=== PATIENT | female | born 1995 | race American Indian/Alaskan Native ===

== ENCOUNTER 2017-09-16 08:53 | Inpatient (IN) | payer MEDICAID, OTHER ==
[2017-09-16] MEDS: Lactated Ringers 1,000 ML IV SCH ×2 (09:35→12:23)
[2017-09-16] MEDS ORDERED: Sodium Chloride 0.9% 10 ML Syringe FLUSH PRN ×2 (09:42→13:29)
[2017-09-16] MEDS ORDERED: Misoprostol 400 MCG (4 X 100 MCG TAB) RECTAL PRN ×2 (09:42→13:29)
[2017-09-16] MEDS ORDERED: Lactated Ringers 500 ML IV ONE (09:42)
[2017-09-16] MEDS ORDERED: Acetaminophen 325 MG Tab PO PRN (09:42)
[2017-09-16] MEDS ORDERED: Methylergonovine 0.2 MG/1 ML Amp IM PRN (09:42)
[2017-09-16] MEDS ORDERED: Lidocaine 1% 30 ML SDV INJECT PRN (09:42)
[2017-09-16] MEDS ORDERED: Ondansetron 4 MG/2 ML SDV IV PRN (09:42)
[2017-09-16] MEDS ORDERED: Carboprost Tromethamine 250 MCG/1 ML Amp IM PRN ×2 (09:42→13:29)
[2017-09-16] MEDS ORDERED: Tranexamic Acid 1,000 MG in Sodium Chloride 0.9% 100 ML IV PRN ×2 (09:42→13:29)
[2017-09-16] MEDS ORDERED: fentaNYL 100 MCG/2 ML SDV ONE (12:03)
[2017-09-16] MEDS ORDERED: Bupivacaine 0.75%/D5W 2 ML Amp ONE (12:03)
--- NOTE | 2017-09-16 12:27 | PCM.SN ---
- Free Text/Narrative Note: Intrathecal. Sitting position, sterile and prep, 1% lidocaine w bicarb for skinwheal to L2 L3 interspace. Introducer, 24 ga pencan x 1. Pos CSF, neg heme, neg parasthesia. 20 mcg pf sufenta, 30 mcg pf fentanyl, 0.4 ml pf ns and 6 mg of 0.75% pf bupivacaine injected after CSF aspiration. Pt to L lateral position. Procedure time 1200 to 1235
[2017-09-16] MEDS ORDERED: Oxytocin/Normal Saline 30 UNIT/500 ML BAG IV SCH (13:20)
--- NOTE | 2017-09-16 13:26 | HP ---
LOCATION: [facility]. HISTORY OF PRESENT ILLNESS: The patient is a 22-year-old, G6, P4-0-1-4, who comes in today at 39 weeks and 1 day with increase contractions, good movement, no loss of fluid, no vaginal bleeding. The patient has had some care in [place]. LMP was 12/22/2016, giving her an EDC of 09/22/2017, which was consistent with an ultrasound in 05/2017, at roughly 25 weeks' gestational age. OB HISTORY: The patient has had 4 vaginal deliveries, one spontaneous miscarriage. Largest baby born was 8 pounds 10 ounces. DEVELOPMENT CONSULTANT HISTORY: She did have an abnormal Pap previously, but the followup has been negative. No STDs. PAST MEDICAL HISTORY: Negative. PAST SURGICAL HISTORY: Negative. SOCIAL HISTORY: The patient does smoke socially. ALLERGIES: She has no known drug allergies. LABORATORY DATA: Blood type is A positive, antibody negative. Hep C negative. Rubella immune. RPR negative. Hep B negative. HIV negative. Gonorrhea and chlamydia negative. One-hour was 104. Ultrasound in May was consistent with dates, showed no abnormalities and a posterior placenta. PHYSICAL EXAMINATION: VITAL SIGNS: The patient is afebrile. Blood pressure 137/70. EFM is reactive and reassuring. She is rosa maria roughly every 2 to 3 minutes and does appear mildly uncomfortable. The RN did check her, she was 4 to 5 cm. ASSESSMENT AND PLAN: Intrauterine at term, in active labor. She does have group B streptococcus unknown status, but no risk factors; therefore, we will hold on any prophylaxis. I did inform the family doctor of this also. Otherwise, we will expect vaginal delivery. When the patient did get her intrathecal, I did go and perform AROM and that was clear and she was 7 cm by that point. [facility] /[id number] CLAIR
[2017-09-16] MEDS ORDERED: Oxytocin 10 Units/1 ML SDV IM PRN (13:29)
[2017-09-16] MEDS ORDERED: Simethicone 80 MG Tab.Chew PO PRN (13:29)
[2017-09-16] MEDS ORDERED: Benzocaine/Menthol 20%-0.5% Spray 56 GM Canister TOP PRN (13:29)
[2017-09-16] MEDS ORDERED: Zolpidem 5 MG Tab PO PRN (13:29)
[2017-09-16] MEDS: Ibuprofen 800 MG Tab PO PRN (16:30)
[2017-09-16] MEDS: Docusate Sodium 100 MG Cap PO PRN (19:42)
[2017-09-16] MEDS: Acetaminophen 325 MG Tab PO PRN (19:42)
[2017-09-16] MEDS ORDERED: hydrOXYzine HCl 25 MG Tab PO ONE (23:18)
--- NOTE | 2017-09-17 02:04 | DEL ---
DATE: 09/16/2017 LOCATION: [facility]. PREDELIVERY DIAGNOSIS: Intrauterine at term, in active labor. Delivery was a normal spontaneous vaginal delivery. FINDINGS: There was a viable with scores 7 and 8. Baby weighed 3690 g. ESTIMATED BLOOD LOSS: Normal. PROCEDURE IN DETAIL: The patient was admitted earlier in the day in active labor. She was given intrathecal anesthesia, and AROM was performed. Shortly after that, the patient did push the 's head out without difficulty. Anterior shoulder was delivered, and the body followed quickly behind. The infant was placed on the maternal abdomen. The cord clamping was delayed. Then, the cord was cut and clamped. The placenta was then delivered with some uterine massage and gentle traction. The placenta was delivered intact. The third-stage Pitocin was then given, and some uterine massage was also performed. There were no vaginal lacerations. Baby was doing well. scores were 7 and 8, and baby did weigh 3690 g. Estimated blood loss was normal. The mom and baby were doing well at the end of the delivery. [facility] /[id number]
[2017-09-17] MEDS: Acetaminophen 325 MG Tab PO PRN ×2 (03:02→08:06)
[2017-09-17] MEDS: Ibuprofen 800 MG Tab PO PRN (03:03)
[2017-09-17] MEDS: Docusate Sodium 100 MG Cap PO PRN (08:05)
[2017-09-17 08:46] VITALS: BP 124/73
[2017-09-17] MEDS ORDERED: Prenatal Multivitamin with Calcium/Folic Acid/Iron Tab PO SCH (09:00)
[2017-09-17] MEDS ORDERED: Bupivacaine 0.75%/D5W 2 ML Amp INJECT ONE (09:59)
[2017-09-17] MEDS ORDERED: fentaNYL 100 MCG/2 ML SDV ITHECAL ONE (09:59)
--- NOTE | 2017-09-17 14:33 | DISCH ---
ADMITTING DIAGNOSES: 1. Intrauterine at term, 38+ weeks. 2. Poor care. 3. History of positive drug screens earlier in the with positive amphetamines on 04/09/2017, and negative on 06/15/2017, and 07/13/2017. 4. Anemia of with hemoglobin 10.6 upon admission. 5. Active labor. 6. Group B streptococcus unknown. DISCHARGE DIAGNOSES: 1. Intrauterine at term, 38+ weeks. 2. Poor care. 3. History of positive drug screens earlier in the with positive amphetamines on 04/09/2017 and negative on 06/15/2017 and 07/13/2017. 4. Anemia of with hemoglobin 10.6 upon admission. 5. Active labor. 6. Concerns with requiring NICU transfer and mother requesting early discharge. 7. Group B streptococcus unknown. HISTORY OF PRESENT ILLNESS: Please see H and P. SUMMARY OF HOSPITAL COURSE: The patient was admitted on the above date with the above diagnoses. She was seen by Dr. Angulo. Please see his H and P and delivery note. It sounds like she delivered pretty quickly after presentation to the hospital. She did have a spontaneous vaginal delivery yielding a male with scores of 7 and 8, weighing 8 pounds 2 ounces (3690 g), that did require a NICU transfer after delivery. EBL was listed as normal. day #1, date of discharge, the patient was tolerating p.o.'s, ambulating, urinating, passing flatus, requesting early discharge due to being transferred from [facility] for further interventions and evaluations. LABORATORY DATA: Discharge labs reveal a white cell count 9.8, hemoglobin 10.6, which is the same from predelivery hemoglobin, and platelets of 250. CONDITION ON DISCHARGE COMPARED TO CONDITION ON ADMISSION: Improved. DISCHARGE INSTRUCTIONS: 1. Diet as tolerated. 2. Activity: No lifting more than 20 pounds. No sit-ups, straining, and pelvic rest for the next 6 weeks with immediate return to fertility discussed with the patient. 3. Reasons to return or go to the emergency room were discussed with the patient in detail including, but not limited to, temperature greater than 100.4, foul-smelling discharge, red hot tender breasts, or increased vaginal bleeding. DISCHARGE MEDICATIONS: 1. [id number] Tylenol or ibuprofen for pain. 2. vitamins x6 weeks. FOLLOWUP: Follow up in 6 weeks for visit. I did discuss the importance of followup and ramifications of not doing so with the patient. DISCHARGE EVALUATION: Vital Signs: Blood pressure 124/73, O2 saturations of 100%, and heart rate 74. Lungs: Clear to auscultation bilaterally. Heart: S1 and S2. Regular rate and rhythm. Pelvic: Firm uterus at around the umbilicus. Extremities: Trace pedal edema. No calf pain. Please see discharge plan for further details as well. The patient understands and agrees with the above treatment and plan. [facility] /[id number]
== END 2017-09-17 10:00 | disposition home or self-care (01) | DRG 775 ==
LOC: DL.OBCHECK 08:53 → DL.OB 09:15 → OBSVTOIN 13:17 → DL.OB 13:17
PROVIDERS: ADMIT Family Medicine; ATTEND Family Medicine
PROC: 10E0XZZ Delivery of Products of Conception, External Approach (ICD-10-PCS; principal; 2017-09-16)
PROC: 3E0S3GC Introduction of Other Therapeutic Substance into Epidural Space, Percutaneous Approach (ICD-10-PCS; 2017-09-16)
PROC: 10907ZC Drainage of Amniotic Fluid, Therapeutic from Products of Conception, Via Natural or Artificial Opening (ICD-10-PCS; 2017-09-16)
DX: O99.02 Anemia complicating childbirth (principal); O99.323 Drug use complicating pregnancy, third trimester; Z37.0 Single live birth; Z3A.39 39 weeks gestation of pregnancy; D64.9 Anemia, unspecified; F15.90 Other stimulant use, unspecified, uncomplicated
CPT/HCPCS: 36415; 59409; 85027; 86592; A9270-GY; J2405; J2590; J3010; J7120

== ENCOUNTER 2018-10-31 19:09 | Emergency (ER) | payer SELFPAY ==
[2018-10-31 19:23] VITALS: BP 130/60
[2018-10-31] MEDS ORDERED: LORazepam 2 MG/ML Syringe IVPUSH ONE (19:23)
[2018-10-31 19:49] LABS: ACETAMINOPHEN < 10 ug/mL; ANION GAP 17.1; CHLORIDE,CL 110 mmol/L (101-111); SODIUM,NA 143 mmol/L (135-145)
--- NOTE | 2018-10-31 19:51 | EDM.PDOC ---
ED HPI GENERAL MEDICAL PROBLEM - General Chief Complaint: Behavioral/Psych Stated Complaint: AMBULANCE Time Seen by Provider: 10/31/18 19:12 Source of Information: Reports: Patient, EMS, Family, RN History Limitations: Reports: Altered Mental Status - History of Present Illness INITIAL COMMENTS - FREE TEXT/NARRATIVE: ED via [facility], Tiered response to POV. Patient initial report OD on Zoloft, unknown time and amount, Mother arrives few minutes after EMS with bottle of Wellbutrin 150mg filled on 10/24, Zoloft per EMR 25mg, Mother did not locate zoloft bottle, Ibuprofen 200mg %0 tab bottle, patient state "lots in it" Seizure reported by boyfriend, not witnessed by mother. Patient underlying good health No prior attempts. No known problems with drug abuse. Mom notes sister recently from OD and buried last week. Estimated time of ingestion 1829. Mother notified by noa at 1848. Patient currently seeing Zenaida Lara counselor at [facility]. Treatments TAR ROOFER: Reports: IV/IO - Related Data Allergies Allergy/AdvReac Type Severity Reaction Status Date / Time paroxetine [From Paxil] Allergy Rash Verified 10/31/18 19:26 Home Meds: Home Meds Multivitamin [Multi-Vitamin Daily] 1 tab PO DAILY 09/16/17 [History] Sertraline [Zoloft] 25 mg PO DAILY 09/16/17 [History] Past Medical History - Past Health History Medical/Surgical History: Denies Medical/Surgical History HEENT History: Reports: None Cardiovascular History: Reports: None Respiratory History: Reports: None Gastrointestinal History: Reports: None Genitourinary History: Reports: None 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: Musculoskeletal History: Reports: Back Pain, Chronic Neurological History: Reports: None Psychiatric History: Reports: Anxiety Endocrine/Metabolic History: Reports: None Hematologic History: Reports: None Immunologic History: Reports: None Oncologic (Cancer) History: Reports: None Dermatologic History: Reports: None - Infectious Disease History Infectious Disease History: Reports: Chicken Pox - Past Surgical History Head Surgeries/Procedures: Reports: None Social & Family History - Family History Family Medical History: Noncontributory - Tobacco Use Smoking Status *Q: Current Status Unknown - Caffeine Use Caffeine Use: Reports: Soda - Recreational Drug Use Recreational Drug Use: Yes Drug Use in Last 12 Months: No ED ROS GENERAL - Review of Systems Review Of Systems: ROS reveals no pertinent complaints other than HPI. - Physical Exam Exam: See Below Exam Limited By: No Limitations General Appearance: Mild Distress, Other (Awake, glazed appearance to eyes, slowed mental processing and verbal response. ) Eye Exam: Bilateral Eye: EOMI, Nystagmus (horizontal), PERRL (4) Ears: Normal External Exam, Normal TMs Nose: Normal Inspection Throat/Mouth: Normal Inspection, Normal Voice Head Exam: Atraumatic, Normocephalic Neck: Normal Inspection, Full Range of Motion Respiratory/Chest: No Respiratory Distress, Lungs Clear, Normal Breath Sounds Cardiovascular: Normal Peripheral Pulses, Regular Rate, Rhythm, Tachycardia GI/Abdominal: Normal Bowel Sounds, Soft, Non-Tender Neuro Exam (Abbreviated): Oriented, Slow to Respond Psychiatric: Flat Affect Skin Exam: Warm, Dry, Intact Course - Vital Signs Last Recorded V/S: Last Vital Signs Temp 96.8 F 10/31/18 19:12 Pulse 119 H 10/31/18 19:12 Resp 20 10/31/18 19:12 BP 130/60 10/31/18 19:12 Pulse Ox 98 10/31/18 19:12 - Orders/Labs/Meds Orders: Active Orders 24 hr Category Date Time Status EKG 12 Lead [EKG Documentation Completion] [RC] URGENT Care 10/31/18 19:11 Active Head wo Cont [CT] Urgent Exams 10/31/18 19:34 Taken Labs: Laboratory Tests 10/31/18 10/31/18 10/31/18 Range/Units 19:20 19:20 19:20 WBC 13.7 H (5.0-10.0) 10^3/uL RBC 4.58 (4.2-5.4) 10^6/uL Hgb 12.9 D (12.0-16.0) g/dL Hct 39.8 (37.0-47.0) % MCV 86.9 (80-100) fL MCH 28.2 (27.0-34.0) pg MCHC 32.4 L (33.0-35.0) g/dL Plt Count 345 D (150-450) 10^3/uL Neut % (Auto) 80.4 H (42.2-75.2) % Lymph % (Auto) 12.2 L (20.5-50.1) % [place] % (Auto) 6.6 (2-8) % Eos % (Auto) 0.7 L (1.0-3.0) % Baso % (Auto) 0.1 (0.0-1.0) % Sodium 143 (135-145) mmol/L Potassium 3.1 L (3.6-5.0) mmol/L Chloride 110 (101-111) mmol/L Carbon Dioxide 19.0 L (21.0-31.0) mmol/L Anion Gap 17.1 BUN 14 (7-18) mg/dL Creatinine 1.0 (0.6-1.3) mg/dL Est Cr Clr Drug Dosing TNP Estimated GFR (MDRD) > 60 BUN/Creatinine Ratio 14.00 Glucose 124 H (74-105) mg/dL Lactic Acid 3.3 H (0.5-2.2) mmol/L Calcium 8.5 (8.4-10.2) mg/dl Total Bilirubin 0.3 (0.2-1.0) mg/dL AST 23 (10-42) IU/L ALT 16 (10-60) IU/L Alkaline Phosphatase 69 (42-121) IU/L Total Protein 7.2 (6.7-8.2) g/dl Albumin 4.2 (3.2-5.5) g/dl Globulin 3.0 Albumin/Globulin Ratio 1.40 HCG, Qual Negative Urine Color (YELLOW) Urine Appearance (CLEAR) Urine pH (5.0-9.0) Ur Specific [place] (1.005-1.030) Urine Protein (NEGATIVE) Urine Glucose (UA) (NEGATIVE) Urine Ketones (NEGATIVE) Urine Occult Blood (NEGATIVE) Urine Nitrite (NEGATIVE) Urine Bilirubin (NEGATIVE) Urine Urobilinogen (0.2-1.0) mg/dL Ur Leukocyte Esterase (NEGATIVE) Urine RBC /HPF Urine WBC (0-5/HPF) /HPF Ur Epithelial Cells (NOT SEEN) /HPF Urine Bacteria (0-FEW/HPF) /HPF Urine Trichomonas (NOT SEEN) /HPF Salicylates < 4 mg/dL Urine Opiates Screen (NEGATIVE) Ur Oxycodone Screen (NEGATIVE) Urine Methadone Screen (NEGATIVE) Acetaminophen < 10 ug/mL Ur Barbiturates Screen (NEGATIVE) U Tricyclic Antidepress (NEGATIVE) Ur Phencyclidine Scrn (NEGATIVE) Ur Amphetamine Screen (NEGATIVE) U Methamphetamines Scrn (NEGATIVE) Urine MDMA Screen (NEGATIVE) U Benzodiazepines Scrn (NEGATIVE) Urine Cocaine Screen (NEGATIVE) U Marijuana (THC) Screen (NEGATIVE) Ethyl Alcohol < 5 mg/dL 10/31/18 10/31/18 Range/Units 19:39 19:39 WBC (5.0-10.0) 10^3/uL RBC (4.2-5.4) 10^6/uL Hgb (12.0-16.0) g/dL Hct (37.0-47.0) % MCV (80-100) fL MCH (27.0-34.0) pg MCHC (33.0-35.0) g/dL Plt Count (150-450) 10^3/uL Neut % (Auto) (42.2-75.2) % Lymph % (Auto) (20.5-50.1) % [place] % (Auto) (2-8) % Eos % (Auto) (1.0-3.0) % Baso % (Auto) (0.0-1.0) % Sodium (135-145) mmol/L Potassium (3.6-5.0) mmol/L Chloride (101-111) mmol/L Carbon Dioxide (21.0-31.0) mmol/L Anion Gap BUN (7-18) mg/dL Creatinine (0.6-1.3) mg/dL Est Cr Clr Drug Dosing Estimated GFR (MDRD) BUN/Creatinine Ratio Glucose (74-105) mg/dL Lactic Acid (0.5-2.2) mmol/L Calcium (8.4-10.2) mg/dl Total Bilirubin (0.2-1.0) mg/dL AST (10-42) IU/L ALT (10-60) IU/L Alkaline Phosphatase (42-121) IU/L Total Protein (6.7-8.2) g/dl Albumin (3.2-5.5) g/dl Globulin Albumin/Globulin Ratio HCG, Qual Urine Color Yellow (YELLOW) Urine Appearance Clear (CLEAR) Urine pH 6.0 (5.0-9.0) Ur Specific [place] >= 1.030 (1.005-1.030) Urine Protein 30 H (NEGATIVE) Urine Glucose (UA) Negative (NEGATIVE) Urine Ketones Negative (NEGATIVE) Urine Occult Blood Trace-intact H (NEGATIVE) Urine Nitrite Negative (NEGATIVE) Urine Bilirubin Negative (NEGATIVE) Urine Urobilinogen 0.2 (0.2-1.0) mg/dL Ur Leukocyte Esterase Negative (NEGATIVE) Urine RBC Not seen /HPF Urine WBC 5-10 H (0-5/HPF) /HPF Ur Epithelial Cells Moderate H (NOT SEEN) /HPF Urine Bacteria Moderate H (0-FEW/HPF) /HPF Urine Trichomonas Present H (NOT SEEN) /HPF Salicylates mg/dL Urine Opiates Screen Negative (NEGATIVE) Ur Oxycodone Screen Negative (NEGATIVE) Urine Methadone Screen Negative (NEGATIVE) Acetaminophen ug/mL Ur Barbiturates Screen Negative (NEGATIVE) U Tricyclic Antidepress Negative (NEGATIVE) Ur Phencyclidine Scrn Negative (NEGATIVE) Ur Amphetamine Screen Positive H (NEGATIVE) U Methamphetamines Scrn Positive H (NEGATIVE) Urine MDMA Screen Negative (NEGATIVE) U Benzodiazepines Scrn Negative (NEGATIVE) Urine Cocaine Screen Negative (NEGATIVE) U Marijuana (THC) Screen Negative (NEGATIVE) Ethyl Alcohol mg/dL Meds: Medications Discontinued Medications Generic Name Dose Route Start Last Admin Trade Name Freq PRN Reason Stop Dose Admin Potassium Chloride 20 meq/ 100 mls @ 50 mls/hr 10/31/18 19:55 10/31/18 20:09 Premix IV 10/31/18 21:54 50 mls/hr ONETIME ONE Administration Sodium Chloride 1,000 mls @ 200 mls/hr 10/31/18 20:06 10/31/18 20:15 Normal Saline IV 11/01/18 01:05 200 mls/hr .BOLUS ONE Administration Lorazepam 2 mg 10/31/18 19:23 10/31/18 19:27 Ativan IVPUSH 10/31/18 19:24 2 mg ONETIME ONE Administration Lorazepam 1 mg 10/31/18 20:17 10/31/18 20:51 Ativan IVPUSH 1 mg ONETIME PRN Administration Agitation - Radiology Interpretation Free Text/Narrative:: [facility] Final Radiology Report Call: [phone] assistance Online chat: [email or web address] Name: DEVON NARAYANAN Age: 23Years F Date: 10/31/2018 SSN: -- : [id number] Study: CT HEAD WO Requesting Physician: CHAD ZALDIVAR Images: [phone] Addl Studies: Provided Clinical History: Contrast: Without Contrast Medium: Contrast Amount: Contrast Method: Page 1 of 2 EXAM: CT Head Without Contrast EXAM DATE/TIME: 10/31/2018 7:57 PM CLINICAL HISTORY: 23 years old, female; Other: Overdose, seizure TECHNIQUE: Imaging protocol: Computed tomography of the head without contrast. Radiation optimization: All CT scans at this facility use at least one of these dose optimization techniques: automated exposure control; mA and/or kV adjustment per patient size (includes targeted exams where dose is matched to clinical indication); or iterative reconstruction. COMPARISON: No relevant prior studies available. FINDINGS: Brain: No evidence for acute transcortical infarct. No mass effect or midline shift. No extra-axial collection. No acute intracranial hemorrhage. Basal cisterns are patent. Ventricles: Normal. No ventriculomegaly. Bones/joints: Unremarkable. No acute fracture. Sinuses: Polyp versus retention cyst within the right maxillary sinus. Mastoid air cells: Visualized mastoid air cells are well aerated. Soft tissues: Unremarkable. IMPRESSION: No evidence of cerebral edema, acute intracranial hemorrhage, or mass effect. - Re-Assessments/Exams Free Text/Narrative Re-Assessment/Exam: 10/31/18 20:49 Dr English accepting patient, tx via [facility]. Patient intermittent agitation, pulling at IV and telemetry, , twitching arms. Calmer with ativan. Departure - Departure Time of Disposition: 20:49 Disposition: DC/Tfer to Acute Hospital 02 Condition: Good Clinical Impression: Drug abuse, Depressive disorder, Seizure Overdose Qualifiers: Encounter type: initial encounter Injury intent: intentional self-harm Qualified Code(s): T50.902A - Poisoning by unspecified drugs, medicaments and biological substances, intentional self-harm, initial encounter - Discharge Information *PRESCRIPTION DRUG MONITORING PROGRAM REVIEWED*: No *COPY OF PRESCRIPTION DRUG MONITORING REPORT IN PATIENT STIVEN: No Forms: ED Department Discharge - My Orders Last 24 Hours: My Active Orders 10/31/18 19:11 EKG 12 Lead [EKG Documentation Completion] [RC] URGENT 10/31/18 19:34 Head wo Cont [CT] Urgent - Assessment/Plan Last 24 Hours: My Active Orders 10/31/18 19:11 EKG 12 Lead [EKG Documentation Completion] [RC] URGENT 10/31/18 19:34 Head wo Cont [CT] Urgent
[2018-10-31] MEDS ORDERED: Potassium Chloride 20 MEQ in Premix Bag 1 BAG IV ONE (19:55)
[2018-10-31] MEDS ORDERED: Sodium Chloride 0.9% 1,000 ML IV ONE (20:06)
[2018-10-31] MEDS ORDERED: LORazepam 2 MG/ML Syringe IVPUSH PRN (20:17)
== END 2018-10-31 20:45 ==
LOC: DL.ED 19:09
DX: T43.222A Poisoning by selective serotonin reuptake inhibitors, intentional self-harm, initial encounter (principal); R56.9 Unspecified convulsions; F32.9 Major depressive disorder, single episode, unspecified; F41.9 Anxiety disorder, unspecified; Z88.8 Allergy status to other drugs, medicaments and biological substances; Z79.899 Other long term (current) drug therapy
CPT/HCPCS: 36415; 70450; 80053; 80305; 80320; 80329; 81001; 83605; 84703; 85025; 93005; 96365; 96375; 99285; J2060; J3480; J7030; G0480

== ENCOUNTER 2020-07-19 08:15 | Emergency (ER) | payer MEDICAID ==
[2020-07-19] MEDS ORDERED: GI Cocktail Oral Solution 30 ML PO ONE (08:25)
[2020-07-19 08:30] VITALS: BP 122/79; PULSE 75
--- NOTE | 2020-07-19 08:33 | EDM.PDOC ---
ED HPI GENERAL MEDICAL PROBLEM - General Chief Complaint: Behavioral/Psych Stated Complaint: IN BY AMBULANCE Time Seen by Provider: 07/19/20 08:15 Source of Information: Reports: Patient, EMS, RN, RN Notes Reviewed History Limitations: Reports: No Limitations - History of Present Illness INITIAL COMMENTS - FREE TEXT/NARRATIVE: Martha is a 25 y/o female who presents to the ED via [facility] with complaints of midepigastric pain. The patient reports a history of panic attack, depression/anxiety, and cholelithiasis; she states she has been prescribed Zoloft and Wellbutrin but has not been taking these medications for some time. She reports the pain began yesterday, but she is not able to state a time of day and cannot link the pain to any activity. She is unable to characterize the pain, but reports it does not radiate. She is unable to identify and aggravating or alleviating factors. She denies recent illness, fever, shaking chills, palpitations, shortness of breath, nausea, constipation, or diarrhea. The patient reports she "..made myself throw up" after eating some potato chips last night as she felt that may be the cause of the pain. She does attest to pain similar to this in the past which was alleviated by "..taking a cold shower and singing the ABC's." The patient attest to occasionally smoking cigarettes and frequent methamphetamine use; she reports her last use was three days ago. She denies alcohol use. The patient states she is unsure of her last bowel movement or her last menstrual period. - Related Data Allergies Allergy/AdvReac Type Severity Reaction Status Date / Time paroxetine [From Paxil] Allergy Rash Verified 10/31/18 19:26 Home Meds: Home Meds Multivitamin [Multi-Vitamin Daily] 1 tab PO DAILY 09/16/17 [History] Sertraline [Zoloft] 25 mg PO DAILY 09/16/17 [History] buPROPion [Wellbutrin] 75 mg PO BEDTIME 07/19/20 [History] Past Medical History - Past Health History Medical/Surgical History: Denies Medical/Surgical History HEENT History: Reports: None Cardiovascular History: Reports: None Respiratory History: Reports: None Gastrointestinal History: Reports: None Genitourinary History: Reports: None 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: Reports: Musculoskeletal History: Reports: Back Pain, Chronic Neurological History: Reports: None Psychiatric History: Reports: Anxiety Endocrine/Metabolic History: Reports: None Hematologic History: Reports: None Immunologic History: Reports: None Oncologic (Cancer) History: Reports: None Dermatologic History: Reports: None - Infectious Disease History Infectious Disease History: Reports: Chicken Pox - Past Surgical History Head Surgeries/Procedures: Reports: None Social & Family History - Family History Family Medical History: No Pertinent Family History - Caffeine Use Caffeine Use: Reports: Coffee, Soda ED ROS GENERAL - Review of Systems Review Of Systems: Comprehensive ROS is negative, except as noted in HPI. ED EXAM, GENERAL - Physical Exam Exam: See Below Exam Limited By: No Limitations General Appearance: Alert, Mild Distress (Midepigastric pain) Eye Exam: Bilateral Eye: EOMI, Normal Inspection, PERRL (3mm) Nose: Normal Inspection, Normal Mucosa, No Blood Throat/Mouth: Normal Inspection, Normal Oropharynx, Normal Voice, No Airway Compromise Head: Atraumatic, Normocephalic Neck: Normal Inspection, Supple, Non-Tender, Full Range of Motion. No: Lymphadenopathy (L), Lymphadenopathy (R) Respiratory/Chest: No Respiratory Distress, Lungs Clear, Normal Breath Sounds, No Accessory Muscle Use. No: Chest Non-Tender, Crackles, Rales, Rhonchi, Wheezing, Stridor, Pleural Rub Cardiovascular: Normal Peripheral Pulses, Regular Rate, Rhythm, No Edema, No Gallop, No JVD, No Murmur, No Rub Peripheral Pulses: 2+: Radial (L), Radial (R) GI/Abdominal: Soft, No Distention, No Abnormal Bruit, No Mass, Pelvis Stable, Tender (To palpation of RUQ), Abnormal Bowel Sounds (Hypoactive bowel sounds). No: Guarding, Rigid, Rebound (Female) Exam: Deferred Rectal (Female) Exam: Deferred Back Exam: Normal Inspection, Full Range of Motion Extremities: Normal Inspection, Normal Range of Motion, Non-Tender, No Pedal Edema, Normal Capillary Refill Neurological: Alert, Oriented, CN II-XII Intact, Normal Cognition, No Motor/Sensory Deficits Psychiatric: Anxious, Tearful Skin Exam: Warm, Dry, Intact, Normal Color, No Rash. No: Ecchymosis, Erythema, Jaundice, Mottled, Pallor, Petechiae Course - Vital Signs Last Recorded V/S: Last Vital Signs Temp 97.5 F 07/19/20 08:17 Pulse 75 07/19/20 08:17 Resp 16 07/19/20 08:17 BP 122/79 07/19/20 08:17 Pulse Ox 99 07/19/20 08:17 - Orders/Labs/Meds Orders: Active Orders 24 hr Category Date Time Status CULTURE URINE [RM] Stat Lab 07/19/20 08:17 Received Labs: Laboratory Tests 07/19/20 07/19/20 07/19/20 Range/Units 08:17 08:17 08:17 WBC (5.0-10.0) 10^3/uL RBC (4.2-5.4) 10^6/uL Hgb (12.0-16.0) g/dL Hct (37.0-47.0) % MCV (80-100) fL MCH (27.0-34.0) pg MCHC (33.0-35.0) g/dL Plt Count (150-450) 10^3/uL Neut % (Auto) (42.2-75.2) % Lymph % (Auto) (20.5-50.1) % [place] % (Auto) (2-8) % Eos % (Auto) (1.0-3.0) % Baso % (Auto) (0.0-1.0) % Sodium (136-145) mmol/L Potassium (3.5-5.1) mmol/L Chloride (98-107) mmol/L Carbon Dioxide (21-32) mmol/L Anion Gap (7-13) mEq/L BUN (7-18) mg/dL Creatinine (0.55-1.02) mg/dL Est Cr Clr Drug Dosing mL/min Estimated GFR (MDRD) BUN/Creatinine Ratio (No establ ref range) Glucose (70-99) mg/dL Calcium (8.5-10.1) mg/dL Magnesium (1.8-2.4) mg/dL Total Bilirubin (0.2-1.0) mg/dL AST (15-37) U/L ALT (14-59) U/L Alkaline Phosphatase (46-116) U/L Troponin I (0.000-0.056) ng/mL C-Reactive Protein (0.0-0.9) mg/dL Total Protein (6.4-8.2) g/dL Albumin (3.4-5.0) g/dL Globulin Albumin/Globulin Ratio Amylase (25-115) U/L Lipase (73-393) U/L Urine Color Yellow (YELLOW) Urine Appearance Cloudy (CLEAR) Urine pH 7.5 (5.0-9.0) Ur Specific [place] 1.025 (1.005-1.030) Urine Protein 30 H (NEGATIVE) Urine Glucose (UA) Negative (NEGATIVE) Urine Ketones Negative (NEGATIVE) Urine Occult Blood Trace-intact H (NEGATIVE) Urine Nitrite Negative (NEGATIVE) Urine Bilirubin Negative (NEGATIVE) Urine Urobilinogen 1.0 (0.2-1.0) mg/dL Ur Leukocyte Esterase Small H (NEGATIVE) Urine RBC 0-5 /HPF Urine WBC 75-100 H (0-5/HPF) /HPF Ur Epithelial Cells Few (NOT SEEN) /HPF Urine Bacteria Moderate H (0-FEW/HPF) /HPF Urine Mucus Rare (NOT SEEN) /LPF Urine HCG, Qual Negative Urine Opiates Screen Negative (NEGATIVE) Ur Oxycodone Screen Negative (NEGATIVE) Urine Methadone Screen Negative (NEGATIVE) Ur Barbiturates Screen Negative (NEGATIVE) U Tricyclic Antidepress Negative (NEGATIVE) Ur Phencyclidine Scrn Negative (NEGATIVE) Ur Amphetamine Screen Negative (NEGATIVE) U Methamphetamines Scrn Positive H (NEGATIVE) Urine MDMA Screen Negative (NEGATIVE) U Benzodiazepines Scrn Negative (NEGATIVE) Urine Cocaine Screen Negative (NEGATIVE) U Marijuana (THC) Screen Negative (NEGATIVE) Ethyl Alcohol (0) mg/dL 07/19/20 07/19/20 07/19/20 Range/Units 08:26 08:26 08:26 WBC 9.2 (5.0-10.0) 10^3/uL RBC 4.52 (4.2-5.4) 10^6/uL Hgb 12.7 (12.0-16.0) g/dL Hct 40.0 (37.0-47.0) % MCV 88.5 (80-100) fL MCH 28.1 (27.0-34.0) pg MCHC 31.8 L (33.0-35.0) g/dL Plt Count 342 (150-450) 10^3/uL Neut % (Auto) 68.0 (42.2-75.2) % Lymph % (Auto) 22.2 (20.5-50.1) % [place] % (Auto) 6.1 (2-8) % Eos % (Auto) 3.4 H (1.0-3.0) % Baso % (Auto) 0.3 (0.0-1.0) % Sodium 141 (136-145) mmol/L Potassium 3.9 (3.5-5.1) mmol/L Chloride 106 (98-107) mmol/L Carbon Dioxide 28 (21-32) mmol/L Anion Gap 10.9 (7-13) mEq/L BUN 7 (7-18) mg/dL Creatinine 0.77 (0.55-1.02) mg/dL Est Cr Clr Drug Dosing 86.80 mL/min Estimated GFR (MDRD) > 60 BUN/Creatinine Ratio 9.1 (No establ ref range) Glucose 92 (70-99) mg/dL Calcium 8.0 L (8.5-10.1) mg/dL Magnesium 1.9 (1.8-2.4) mg/dL Total Bilirubin 0.2 (0.2-1.0) mg/dL AST 13 L (15-37) U/L ALT 24 (14-59) U/L Alkaline Phosphatase 82 (46-116) U/L Troponin I < 0.017 (0.000-0.056) ng/mL C-Reactive Protein < 0.2 (0.0-0.9) mg/dL Total Protein 6.4 (6.4-8.2) g/dL Albumin 3.1 L (3.4-5.0) g/dL Globulin 3.3 Albumin/Globulin Ratio 0.94 Amylase 55 (25-115) U/L Lipase 71 L (73-393) U/L Urine Color (YELLOW) Urine Appearance (CLEAR) Urine pH (5.0-9.0) Ur Specific [place] (1.005-1.030) Urine Protein (NEGATIVE) Urine Glucose (UA) (NEGATIVE) Urine Ketones (NEGATIVE) Urine Occult Blood (NEGATIVE) Urine Nitrite (NEGATIVE) Urine Bilirubin (NEGATIVE) Urine Urobilinogen (0.2-1.0) mg/dL Ur Leukocyte Esterase (NEGATIVE) Urine RBC /HPF Urine WBC (0-5/HPF) /HPF Ur Epithelial Cells (NOT SEEN) /HPF Urine Bacteria (0-FEW/HPF) /HPF Urine Mucus (NOT SEEN) /LPF Urine HCG, Qual Urine Opiates Screen (NEGATIVE) Ur Oxycodone Screen (NEGATIVE) Urine Methadone Screen (NEGATIVE) Ur Barbiturates Screen (NEGATIVE) U Tricyclic Antidepress (NEGATIVE) Ur Phencyclidine Scrn (NEGATIVE) Ur Amphetamine Screen (NEGATIVE) U Methamphetamines Scrn (NEGATIVE) Urine MDMA Screen (NEGATIVE) U Benzodiazepines Scrn (NEGATIVE) Urine Cocaine Screen (NEGATIVE) U Marijuana (THC) Screen (NEGATIVE) Ethyl Alcohol < 3 (0) mg/dL Meds: Medications Discontinued Medications Generic Name Dose Route Start Last Admin Trade Name Freq PRN Reason Stop Dose Admin Al Hydroxide/Mg Hydroxide 30 ml 07/19/20 08:25 07/19/20 08:36 Gi Cocktail Oral Solution 30 Ml PO 07/19/20 08:26 30 ml ONETIME ONE Administration Lorazepam 0.5 mg 07/19/20 09:12 07/19/20 09:19 Lorazepam 0.5 Mg Tab PO 07/19/20 09:13 0.5 mg ONETIME ONE Administration - Re-Assessments/Exams Free Text/Narrative Re-Assessment/Exam: 07/19/20 CBC unremarkable for acute processes; no evidence of systemic infection or anemia. Kidney function, liver function, and electrolytes appropriate via CMP. UA positive for UTI - will treat with cefdinir. Tox Screen + for methamphetamines. ETOH negative. Reviewed findings of examination and lab work with patient and her mother. Discussed supportive cares for withdrawal from methamphetamines and UTI. Patient verbalized understanding and agreement with the plan of care. Departure - Departure Time of Disposition: 09:12 Disposition: Home, Self-Care 01 Clinical Impression: Methamphetamine abuse, Withdrawal from methamphetamine Urinary tract infection Qualifiers: Urinary tract infection type: acute cystitis Hematuria presence: without hematuria Qualified Code(s): N30.00 - Acute cystitis without hematuria - Discharge Information *PRESCRIPTION DRUG MONITORING PROGRAM REVIEWED*: Not Applicable *COPY OF PRESCRIPTION DRUG MONITORING REPORT IN PATIENT STIVEN: Not Applicable Instructions: Urinary Tract Infection, Adult, [id number], Methamphetamines Use Disorder Forms: ED Department Discharge Additional Instructions: Rx: [email or web address] 1.) Take all of your antibiotic until it is gone. 2.) Drink plenty of water to stay hydrated and flush out your bladder. 3.) Refrain from using methamphetamines. 4.) Use proper feminine hygiene, including urinating after sex and avoiding scented care products. Sepsis Event Note (ED) - Focused Exam Vital Signs: Vital Signs Temp Pulse Resp BP Pulse Ox 07/19/20 08:17 97.5 F 75 16 122/79 99 - My Orders Last 24 Hours: My Active Orders 07/19/20 08:17 CULTURE URINE [RM] Stat - Assessment/Plan Last 24 Hours: My Active Orders 07/19/20 08:17 CULTURE URINE [RM] Stat
[2020-07-19 08:55] LABS: ANION GAP 10.9 mEq/L (7-13); CHLORIDE,CL 106 mmol/L (98-107); SODIUM,NA 141 mmol/L (136-145)
[2020-07-19] MEDS ORDERED: LORazepam 0.5 MG Tab PO ONE (09:12)
== END 2020-07-19 09:23 | disposition home or self-care (01) ==
LOC: DL.ED 08:15
DX: N30.00 Acute cystitis without hematuria (principal); F15.13 Other stimulant abuse with withdrawal; F17.210 Nicotine dependence, cigarettes, uncomplicated; Z88.8 Allergy status to other drugs, medicaments and biological substances; Z79.899 Other long term (current) drug therapy
CPT/HCPCS: 36415; 80053; 80305; 80307; 81001; 81025; 82150; 83690; 83735; 84484; 85025; 86140; 87086; 87088; 87186; 99284; A9270

== ENCOUNTER 2020-08-25 04:20 | Observation (INO) | payer MEDICAID ==
--- NOTE | 2020-08-25 05:25 | EDM.PDOCBH ---
<Andrei Reyes M - Last Filed: 08/25/20 05:31> ED HPI GENERAL MEDICAL PROBLEM - General Chief Complaint: Drug or Alcohol Abuse Stated Complaint: AMBULANCE Time Seen by Provider: 08/25/20 04:50 Source of Information: Reports: Patient, EMS History Limitations: Reports: No Limitations - History of Present Illness INITIAL COMMENTS - FREE TEXT/NARRATIVE: This 25 yo female patient was brought to the ED by [facility] due to taking an unknown amount of medications. When EMS arrived on scene, the patient's family handed the EMT a handful of pills reporting that the patient took some of these pills at about 0230 this morning. The patient does not know how many or which pills she took. The patient reports she took the medications due to being in a conflict with her boyfriend. The patient reports she did not take the pills with intent to harm herself. EMS brought in a number of pills in an evidence bag. The pills were identified as: 1) Tylenol (500 mg) #12, 2) Omeprazole (20 mg) #15, 3) Bupropion (150 mg) #7, 4) Sertraline (50 mg) #4 and Hydroxyzine (25 mg) #12. The patient was able to answer questions appropriately during the assessment. 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) - Related Data Allergies Allergy/AdvReac Type Severity Reaction Status Date / Time paroxetine [From Paxil] Allergy Rash Verified 08/25/20 12:16 Home Meds: Home Meds Multivitamin [Multi-Vitamin Daily] 1 tab PO DAILY 09/16/17 [History] Sertraline [Zoloft] 25 mg PO DAILY 09/16/17 [History] buPROPion [Wellbutrin] 75 mg PO BEDTIME 07/19/20 [History] Past Medical History - Past Health History Medical/Surgical History: Denies Medical/Surgical History HEENT History: Reports: None Cardiovascular History: Reports: None Respiratory History: Reports: None Gastrointestinal History: Reports: None Genitourinary History: Reports: None 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: Musculoskeletal History: Reports: Back Pain, Chronic Neurological History: Reports: None Psychiatric History: Reports: Anxiety Endocrine/Metabolic History: Reports: None Hematologic History: Reports: None Immunologic History: Reports: None Oncologic (Cancer) History: Reports: None Dermatologic History: Reports: None - Infectious Disease History Infectious Disease History: Reports: Chicken Pox - Past Surgical History Head Surgeries/Procedures: Reports: None Social & Family History - Family History Family Medical History: No Pertinent Family History - Tobacco Use Tobacco Use Status *Q: Current Some Day Tobacco User Years of Tobacco use: 15 Packs/Tins Daily: 0.5 - Caffeine Use Caffeine Use: Reports: Coffee, Energy Drinks, Soda, Tea, Other - Recreational Drug Use Recreational Drug Use: Yes Recreational Drug Type: Reports: Marijuana/Hashish, Methamphetamine ED ROS GENERAL - Review of Systems Review Of Systems: Comprehensive ROS is negative, except as noted in HPI. ED EXAM, BEHAVIORAL HEALTH - Physical Exam Exam: See Below Exam Limited By: No Limitations General Appearance: Alert, WD/WN, No Apparent Distress Eye Exam: Bilateral Eye: EOMI, Normal Inspection, PERRL Ears: Normal External Exam, Normal Canal, Hearing Grossly Normal, Normal TMs Nose: Normal Inspection, Normal Mucosa, No Blood Throat/Mouth: Normal Inspection, Normal Lips, Normal Teeth, Normal Gums, Normal Oropharynx, Normal Voice, No Airway Compromise Head: Atraumatic, Normocephalic Neck: Normal Inspection, Supple, Non-Tender, Full Range of Motion Respiratory/Chest: No Respiratory Distress, Lungs Clear, Normal Breath Sounds, No Accessory Muscle Use, Chest Non-Tender Cardiovascular: Normal Peripheral Pulses, Regular Rate, Rhythm, No Edema, No Gallop, No JVD, No Murmur, No Rub GI/Abdominal: Normal Bowel Sounds, Soft, Non-Tender, No Organomegaly, No Distention, No Abnormal Bruit, No Mass (Female) Exam: Deferred Rectal (Female) Exam: Deferred Back Exam: Normal Inspection, Full Range of Motion, NT Extremities: Normal Inspection, Normal Range of Motion, Non-Tender, Normal Capillary Refill, No Pedal Edema Neurological: Alert, Normal Mood/Affect, CN II-XII Intact, Normal Cognition, No Motor/Sensory Deficits, Oriented x 3 Psychiatric: Alert, Normal Cognition, Normal Mood, Oriented, Flat Affect Skin Exam: Warm, Dry, Intact, Normal color, No rash #1 Interpretation EKG Date: 08/25/20 Time: 05:10 Rhythm: NSR Rate (Beats/Min): 79 [place]: Normal P-Wave: Present QRS: Normal ST-T: Normal QT: Normal Comparison: NA - No Prior EKG COURSE, BEHAVIORAL HEALTH COMP - Course Re-Assessment/Re-Exam: Poison Control was contacted and recommended the patient be observed for 18-22 hours due to the possible ingestion of Bupropion watching for potassium, magnesium, QT elongation and seizures. The patient should have a Tylenol level checked 4 hours after ingestion (as we don't actually know the time of ingestion a Tylenol level was ordered at presentation (0500) and should be rechecked at 0900. The patient should be admitted with telemetry and seizure precautions in place. Re-Assessment/Re-Exam Date: 08/25/20 (Patient care transferred to Alexus Edwards due to shift change.) Departure - Departure Disposition: Refer to Observation Clinical Impression: Methamphetamine intoxication Multiple drug overdose Qualifiers: Encounter type: initial encounter Injury intent: accidental or unintentional Qualified Code(s): T50.911A - Poisoning by multiple unspecified drugs, medicaments and biological substances, accidental (unintentional), initial encounter - Discharge Information Referrals: PCP,Unobtain [Ordering Only Provider] - Forms: ED Department Discharge Sepsis Event Note (ED) - Evaluation Sepsis Screening Result: No Definite Risk <Alexus Edwards Valarie - Last Filed: 08/25/20 14:14> COURSE, BEHAVIORAL HEALTH COMP - Course Vital Signs: Last Vital Signs Temp 97.3 F 08/25/20 04:45 Pulse 94 08/25/20 04:45 Resp 20 08/25/20 04:45 BP 117/69 08/25/20 04:45 Pulse Ox 98 08/25/20 04:45 Orders, Labs, Meds: Active Orders 24 hr Category Date Time Status Admission Diagnosis [ADT] Stat ADT 08/25/20 11:10 Ordered Admission Status [Patient Status] [ADT] Routine ADT 08/25/20 11:10 Ordered Antiembolic Devices [RC] PER UNIT ROUTINE Care 08/25/20 12:28 Active EKG 12 Lead [EKG Documentation Completion] [RC] ROUTINE Care 08/26/20 05:00 Active EKG Documentation Completion [RC] STAT Care 08/25/20 04:54 Active Neuro Check [RC] Q4H Care 08/25/20 12:30 Active Peripheral IV Care [RC] . DIRECTED Care 08/25/20 12:28 Active Telemetry Monitoring [Cardiac Monitoring] [RC] . Care 08/25/20 12:29 Active DIRECTED Up ad Maureen [RC] ASDIRECTED Care 08/25/20 12:28 Active Vital Signs [RC] Q4H Care 08/25/20 12:28 Active Consult to Case Management/Manager Telecom [CONS] Cons 08/25/20 12:28 Active Routine Regular Diet [DIET] Diet 08/25/20 Lunch Active CBC WITH AUTO DIFF [HEME] Routine Lab 08/26/20 05:00 Ordered CMP [COMPREHENSIVE METABOLIC PN,CMP] [CHEM] Routine Lab 08/26/20 05:00 Ordered MAGNESIUM [CHEM] Routine Lab 08/26/20 05:00 Ordered Ondansetron [Zofran] Med 08/25/20 12:28 Active 4 mg IVPUSH Q4H PRN Sodium Chloride 0.9% [Normal Saline] 1,000 ml Med 08/25/20 12:30 Active IV ASDIRECTED Sodium Chloride 0.9% [Saline Flush] Med 08/25/20 12:28 Active 10 ml FLUSH ASDIRECTED PRN Peripheral IV Insertion Adult [OM.PC] Routine Oth 08/25/20 12:28 Ordered Seizure Precautions [OM.PC] Routine Oth 08/25/20 12:30 Ordered Sequential Compression Device [OM.PC] Per Unit Routine Oth 08/25/20 12:28 Ordered Special Observation [BH] Routine Oth 08/25/20 12:31 Ordered Resuscitation Status Routine Resus Stat 08/25/20 12:28 Ordered Medication Orders Sodium Chloride (Normal Saline) 1,000 mls @ 100 mls/hr IV ASDIRECTED LANDY Ondansetron HCl (Ondansetron 4 Mg/2 Ml Sdv) 4 mg IVPUSH Q4H PRN PRN Reason: Nausea/Vomiting Sodium Chloride (Sodium Chloride 0.9% 10 Ml Syringe) 10 ml FLUSH ASDIRECTED PRN PRN Reason: Keep Vein Open Laboratory Tests 08/25/20 08/25/20 08/25/20 Range/Units 04:44 04:44 05:05 WBC 10.5 H (5.0-10.0) 10^3/uL RBC 4.59 (4.2-5.4) 10^6/uL Hgb 12.8 (12.0-16.0) g/dL Hct 39.4 (37.0-47.0) % MCV 85.8 (80-100) fL MCH 27.9 (27.0-34.0) pg MCHC 32.5 L (33.0-35.0) g/dL Plt Count 319 (150-450) 10^3/uL Neut % (Auto) 63.6 (42.2-75.2) % Lymph % (Auto) 26.2 (20.5-50.1) % [place] % (Auto) 7.3 (2-8) % Eos % (Auto) 2.5 (1.0-3.0) % Baso % (Auto) 0.4 (0.0-1.0) % Sodium (136-145) mmol/L Potassium (3.5-5.1) mmol/L Chloride (98-107) mmol/L Carbon Dioxide (21-32) mmol/L Anion Gap (7-13) mEq/L BUN (7-18) mg/dL Creatinine (0.55-1.02) mg/dL Est Cr Clr Drug Dosing mL/min Estimated GFR (MDRD) BUN/Creatinine Ratio (No establ ref range) Glucose (70-99) mg/dL Lactic Acid (0.4-2.0) mmol/L Calcium (8.5-10.1) mg/dL Magnesium (1.8-2.4) mg/dL Total Bilirubin (0.2-1.0) mg/dL AST (15-37) U/L ALT (14-59) U/L Alkaline Phosphatase (46-116) U/L Total Protein (6.4-8.2) g/dL Albumin (3.4-5.0) g/dL Globulin Albumin/Globulin Ratio Amylase (25-115) U/L Lipase (73-393) U/L Urine HCG, Qual Negative Salicylates (2.8-20(Therapeutic)) mg/dL Urine Opiates Screen Negative (NEGATIVE) Ur Oxycodone Screen Negative (NEGATIVE) Urine Methadone Screen Negative (NEGATIVE) Acetaminophen (10-30 (Therapeutic)) ug/mL Ur Barbiturates Screen Negative (NEGATIVE) U Tricyclic Antidepress Negative (NEGATIVE) Ur Phencyclidine Scrn Negative (NEGATIVE) Ur Amphetamine Screen Positive H (NEGATIVE) U Methamphetamines Scrn Positive H (NEGATIVE) Urine MDMA Screen Positive H (NEGATIVE) U Benzodiazepines Scrn Negative (NEGATIVE) Urine Cocaine Screen Negative (NEGATIVE) U Marijuana (THC) Screen Negative (NEGATIVE) Ethyl Alcohol (0) mg/dL SARS-CoV-2 RNA (DANYELLE) (NEGATIVE) 08/25/20 08/25/20 08/25/20 Range/Units 05:05 05:05 05:05 WBC (5.0-10.0) 10^3/uL RBC (4.2-5.4) 10^6/uL Hgb (12.0-16.0) g/dL Hct (37.0-47.0) % MCV (80-100) fL MCH (27.0-34.0) pg MCHC (33.0-35.0) g/dL Plt Count (150-450) 10^3/uL Neut % (Auto) (42.2-75.2) % Lymph % (Auto) (20.5-50.1) % [place] % (Auto) (2-8) % Eos % (Auto) (1.0-3.0) % Baso % (Auto) (0.0-1.0) % Sodium 143 (136-145) mmol/L Potassium 3.7 (3.5-5.1) mmol/L Chloride 105 (98-107) mmol/L Carbon Dioxide 28 (21-32) mmol/L Anion Gap 13.7 H (7-13) mEq/L BUN 10 (7-18) mg/dL Creatinine 0.90 (0.55-1.02) mg/dL Est Cr Clr Drug Dosing 80.28 mL/min Estimated GFR (MDRD) > 60 BUN/Creatinine Ratio 11.1 (No establ ref range) Glucose 84 (70-99) mg/dL Lactic Acid 0.4 (0.4-2.0) mmol/L Calcium 8.9 (8.5-10.1) mg/dL Magnesium 1.8 (1.8-2.4) mg/dL Total Bilirubin 0.4 (0.2-1.0) mg/dL AST 20 (15-37) U/L ALT 25 (14-59) U/L Alkaline Phosphatase 80 (46-116) U/L Total Protein 7.0 (6.4-8.2) g/dL Albumin 3.6 (3.4-5.0) g/dL Globulin 3.4 Albumin/Globulin Ratio 1.1 Amylase 54 (25-115) U/L Lipase 105 (73-393) U/L Urine HCG, Qual Salicylates < 2.8 L (2.8-20(Therapeutic)) mg/dL Urine Opiates Screen (NEGATIVE) Ur Oxycodone Screen (NEGATIVE) Urine Methadone Screen (NEGATIVE) Acetaminophen 8 L (10-30 (Therapeutic)) ug/mL Ur Barbiturates Screen (NEGATIVE) U Tricyclic Antidepress (NEGATIVE) Ur Phencyclidine Scrn (NEGATIVE) Ur Amphetamine Screen (NEGATIVE) U Methamphetamines Scrn (NEGATIVE) Urine MDMA Screen (NEGATIVE) U Benzodiazepines Scrn (NEGATIVE) Urine Cocaine Screen (NEGATIVE) U Marijuana (THC) Screen (NEGATIVE) Ethyl Alcohol < 3 (0) mg/dL SARS-CoV-2 RNA (DANYELLE) (NEGATIVE) 08/25/20 08/25/20 Range/Units 08:55 11:21 WBC (5.0-10.0) 10^3/uL RBC (4.2-5.4) 10^6/uL Hgb (12.0-16.0) g/dL Hct (37.0-47.0) % MCV (80-100) fL MCH (27.0-34.0) pg MCHC (33.0-35.0) g/dL Plt Count (150-450) 10^3/uL Neut % (Auto) (42.2-75.2) % Lymph % (Auto) (20.5-50.1) % [place] % (Auto) (2-8) % Eos % (Auto) (1.0-3.0) % Baso % (Auto) (0.0-1.0) % Sodium (136-145) mmol/L Potassium (3.5-5.1) mmol/L Chloride (98-107) mmol/L Carbon Dioxide (21-32) mmol/L Anion Gap (7-13) mEq/L BUN (7-18) mg/dL Creatinine (0.55-1.02) mg/dL Est Cr Clr Drug Dosing mL/min Estimated GFR (MDRD) BUN/Creatinine Ratio (No establ ref range) Glucose (70-99) mg/dL Lactic Acid (0.4-2.0) mmol/L Calcium (8.5-10.1) mg/dL Magnesium (1.8-2.4) mg/dL Total Bilirubin (0.2-1.0) mg/dL AST (15-37) U/L ALT (14-59) U/L Alkaline Phosphatase (46-116) U/L Total Protein (6.4-8.2) g/dL Albumin (3.4-5.0) g/dL Globulin Albumin/Globulin Ratio Amylase (25-115) U/L Lipase (73-393) U/L Urine HCG, Qual Salicylates (2.8-20(Therapeutic)) mg/dL Urine Opiates Screen (NEGATIVE) Ur Oxycodone Screen (NEGATIVE) Urine Methadone Screen (NEGATIVE) Acetaminophen 0 L (10-30 (Therapeutic)) ug/mL Ur Barbiturates Screen (NEGATIVE) U Tricyclic Antidepress (NEGATIVE) Ur Phencyclidine Scrn (NEGATIVE) Ur Amphetamine Screen (NEGATIVE) U Methamphetamines Scrn (NEGATIVE) Urine MDMA Screen (NEGATIVE) U Benzodiazepines Scrn (NEGATIVE) Urine Cocaine Screen (NEGATIVE) U Marijuana (THC) Screen (NEGATIVE) Ethyl Alcohol (0) mg/dL SARS-CoV-2 RNA (DANYELLE) Negative (NEGATIVE) Medications Generic Name Dose Route Start Last Admin Trade Name Freq PRN Reason Stop Dose Admin Sodium Chloride 1,000 mls @ 100 mls/hr 08/25/20 12:30 Normal Saline IV ASDIRECTED LANDY Ondansetron HCl 4 mg 08/25/20 12:28 Ondansetron 4 Mg/2 Ml Sdv IVPUSH Q4H PRN Nausea/Vomiting Sodium Chloride 10 ml 08/25/20 12:28 Sodium Chloride 0.9% 10 Ml Syringe FLUSH ASDIRECTED PRN Keep Vein Open Re-Assessment/Re-Exam: Care of patient assumed by check writer salesperson at [phone]. Roya from [facility] called to further psychiatric evaluation. Roya states she is willing to admit patient to local CRU following appropriate medical observation. Case discussed with Dr. Mckeon who kindly agreed to accept patient for observation. Gracie from [facility] to follow up with patient later today. Departure - Departure Time of Disposition: 11:22 Condition: Fair Sepsis Event Note (ED) - Focused Exam Vital Signs: Vital Signs Temp Pulse Resp BP Pulse Ox 08/25/20 04:45 97.3 F 94 20 117/69 98 - My Orders Last 24 Hours: My Active Orders 08/25/20 11:10 Admission Diagnosis [ADT] Stat Admission Status [Patient Status] [ADT] Routine - Assessment/Plan Last 24 Hours: My Active Orders 08/25/20 11:10 Admission Diagnosis [ADT] Stat Admission Status [Patient Status] [ADT] Routine
[2020-08-25 05:27] LABS: ACETAMINOPHEN 8 ug/mL (10-30 (Therapeutic)); ANION GAP 13.7 mEq/L (7-13); CHLORIDE,CL 105 mmol/L (98-107); SODIUM,NA 143 mmol/L (136-145)
[2020-08-25] MEDS ORDERED: Sodium Chloride 0.9% 10 ML Syringe FLUSH PRN (12:28)
[2020-08-25] MEDS ORDERED: Ondansetron 4 MG/2 ML SDV IVPUSH PRN (12:28)
[2020-08-25] MEDS ORDERED: Sodium Chloride 0.9% 1,000 ML IV SCH (12:30)
--- NOTE | 2020-08-25 12:35 | PCM.HP ---
H&P History of Present Illness - General Date of Service: 08/25/20 Admit Problem/Dx: Admission Diagnosis/Problem Admission Diagnosis/Problem Medication overdose - History of Present Illness Initial Comments - Free Text/Narative: The patient is a 25-year-old female who presents with chief complaint of overdose. Please note that the patient is not forthcoming with details regarding her presentation to the emergency department. She currently is transferred to the emergency department by EMS after she took an excessive number of Wellbutrin, Zoloft, Tylenol, and hydroxyzine. The patient minimizes the amount that she takes. The patient denies suicidal ideation and she denies this being a suicide attempt. She denies homicidal ideation. She denies auditory or visual hallucinations. She denies fever, rigors, nausea, vomiting, cough, wheeze, abdominal pain, diarrhea, myalgia, chest pain, dyspnea. She st ates an argument with her boyfriend is the precipitating factor for her overdose/attempted overdose. She presents for further evaluation - Related Data Allergies/Adverse Reactions: Allergies Allergy/AdvReac Type Severity Reaction Status Date / Time paroxetine [From Paxil] Allergy Rash Verified 08/25/20 12:16 Home Medications: Home Meds Multivitamin [Multi-Vitamin Daily] 1 tab PO DAILY 09/16/17 [History] Sertraline [Zoloft] 25 mg PO DAILY 09/16/17 [History] buPROPion [Wellbutrin] 75 mg PO BEDTIME 07/19/20 [History] Past Medical History - Past Health History Medical/Surgical History: Denies Medical/Surgical History HEENT History: Reports: None Cardiovascular History: Reports: None Respiratory History: Reports: None Gastrointestinal History: Reports: None Genitourinary History: Reports: None 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: Musculoskeletal History: Reports: Back Pain, Chronic Neurological History: Reports: None Psychiatric History: Reports: Anxiety Endocrine/Metabolic History: Reports: None Hematologic History: Reports: None Immunologic History: Reports: None Oncologic (Cancer) History: Reports: None Dermatologic History: Reports: None - Infectious Disease History Infectious Disease History: Reports: Chicken Pox - Past Surgical History Head Surgeries/Procedures: Reports: None Social & Family History - Family History Family Medical History: No Pertinent Family History - Tobacco Use Tobacco Use Status *Q: Current Some Day Tobacco User Years of Tobacco use: 15 Packs/Tins Daily: 0.5 - Caffeine Use Caffeine Use: Reports: Coffee, Energy Drinks, Soda, Tea, Other - Recreational Drug Use Recreational Drug Use: Yes Recreational Drug Type: Reports: Marijuana/Hashish, Methamphetamine H&P Review of Systems - Review of Systems: Review Of Systems: See Below General: Reports: No Symptoms HEENT: Reports: No Symptoms Pulmonary: Reports: No Symptoms Cardiovascular: Reports: No Symptoms Gastrointestinal: Reports: No Symptoms Genitourinary: Reports: No Symptoms Musculoskeletal: Reports: No Symptoms Skin: Reports: No Symptoms Psychiatric: Reports: No Symptoms Neurological: Reports: No Symptoms Hematologic/Lymphatic: Reports: No Symptoms Immunologic: Reports: No Symptoms Exam - Exam Exam: See Below - Vital Signs Vital Signs: Last Vital Signs Temp 97.3 F 08/25/20 04:45 Pulse 94 08/25/20 04:45 Resp 20 08/25/20 04:45 BP 117/69 08/25/20 04:45 Pulse Ox 98 08/25/20 04:45 Weight: 119 lb 6.4 oz - Exam General: Alert, Oriented, 4 HEENT: PERRLA, Hearing Intact, Mucosa Moist & [place], Nares Patent, Normal Nasal Septum, Posterior Pharynx Clear, Conjunctiva Clear, EOMI, EACs Clear, TMs Clear Neck: Supple, Trachea Midline, 2 Lungs: Clear to Auscultation, Normal Respiratory Effort Cardiovascular: Regular Rate, Regular Rhythm GI/Abdominal Exam: Normal Bowel Sounds, Soft, Non-Tender, No Organomegaly, No Distention, No Abnormal Bruit, No Mass, Pelvis Stable Back Exam: Normal Inspection, Full Range of Motion, NT Extremities: Normal Inspection, Normal Range of Motion, Non-Tender, No Pedal Edema, Normal Capillary Refill Peripheral Pulses: 2+: Carotid (L), Carotid (R), Brachial (L), Brachial (R), Radial (L), Radial (R), Femoral (L), Femoral (R), Popliteal (L), Popliteal (R), Posterior Tibial (L), Posterior Tibial (R), Dorsalis Pedis (L), Dorsalis Pedis (R) Skin: Warm, Dry, Intact Neurological: Cranial Nerves Intact, Reflexes Equal Bilateral Neuro Extensive - Mental Status: Alert, Oriented x3, Normal Mood/Affect, Normal Cognition Neuro Extensive - Motor, Sensory, Reflexes: CN II-XII Intact, Normal Gait, Normal Reflexes DTR: 2+: Bicep (L), Bicep (R), Tricep (L), Tricep (R), Patella (L), Patella (R), Achilles (L), Achilles (R) Psychiatric: Alert, Normal Affect, Normal Mood - Patient Data Lab Results Last 24 hrs: Laboratory Results - last 24 hr 08/25/20 08/25/20 08/25/20 Range/Units 04:44 04:44 05:05 WBC 10.5 H (5.0-10.0) 10^3/uL RBC 4.59 (4.2-5.4) 10^6/uL Hgb 12.8 (12.0-16.0) g/dL Hct 39.4 (37.0-47.0) % MCV 85.8 (80-100) fL MCH 27.9 (27.0-34.0) pg MCHC 32.5 L (33.0-35.0) g/dL Plt Count 319 (150-450) 10^3/uL Neut % (Auto) 63.6 (42.2-75.2) % Lymph % (Auto) 26.2 (20.5-50.1) % [place] % (Auto) 7.3 (2-8) % Eos % (Auto) 2.5 (1.0-3.0) % Baso % (Auto) 0.4 (0.0-1.0) % Sodium (136-145) mmol/L Potassium (3.5-5.1) mmol/L Chloride (98-107) mmol/L Carbon Dioxide (21-32) mmol/L Anion Gap (7-13) mEq/L BUN (7-18) mg/dL Creatinine (0.55-1.02) mg/dL Est Cr Clr Drug Dosing mL/min Estimated GFR (MDRD) BUN/Creatinine Ratio (No establ ref range) Glucose (70-99) mg/dL Lactic Acid (0.4-2.0) mmol/L Calcium (8.5-10.1) mg/dL Magnesium (1.8-2.4) mg/dL Total Bilirubin (0.2-1.0) mg/dL AST (15-37) U/L ALT (14-59) U/L Alkaline Phosphatase (46-116) U/L Total Protein (6.4-8.2) g/dL Albumin (3.4-5.0) g/dL Globulin Albumin/Globulin Ratio Amylase (25-115) U/L Lipase (73-393) U/L Urine HCG, Qual Negative Salicylates (2.8-20(Therapeutic)) mg/dL Urine Opiates Screen Negative (NEGATIVE) Ur Oxycodone Screen Negative (NEGATIVE) Urine Methadone Screen Negative (NEGATIVE) Acetaminophen (10-30 (Therapeutic)) ug/mL Ur Barbiturates Screen Negative (NEGATIVE) U Tricyclic Antidepress Negative (NEGATIVE) Ur Phencyclidine Scrn Negative (NEGATIVE) Ur Amphetamine Screen Positive H (NEGATIVE) U Methamphetamines Scrn Positive H (NEGATIVE) Urine MDMA Screen Positive H (NEGATIVE) U Benzodiazepines Scrn Negative (NEGATIVE) Urine Cocaine Screen Negative (NEGATIVE) U Marijuana (THC) Screen Negative (NEGATIVE) Ethyl Alcohol (0) mg/dL SARS-CoV-2 RNA (DANYELLE) (NEGATIVE) 08/25/20 08/25/20 08/25/20 Range/Units 05:05 05:05 05:05 WBC (5.0-10.0) 10^3/uL RBC (4.2-5.4) 10^6/uL Hgb (12.0-16.0) g/dL Hct (37.0-47.0) % MCV (80-100) fL MCH (27.0-34.0) pg MCHC (33.0-35.0) g/dL Plt Count (150-450) 10^3/uL Neut % (Auto) (42.2-75.2) % Lymph % (Auto) (20.5-50.1) % [place] % (Auto) (2-8) % Eos % (Auto) (1.0-3.0) % Baso % (Auto) (0.0-1.0) % Sodium 143 (136-145) mmol/L Potassium 3.7 (3.5-5.1) mmol/L Chloride 105 (98-107) mmol/L Carbon Dioxide 28 (21-32) mmol/L Anion Gap 13.7 H (7-13) mEq/L BUN 10 (7-18) mg/dL Creatinine 0.90 (0.55-1.02) mg/dL Est Cr Clr Drug Dosing 80.28 mL/min Estimated GFR (MDRD) > 60 BUN/Creatinine Ratio 11.1 (No establ ref range) Glucose 84 (70-99) mg/dL Lactic Acid 0.4 (0.4-2.0) mmol/L Calcium 8.9 (8.5-10.1) mg/dL Magnesium 1.8 (1.8-2.4) mg/dL Total Bilirubin 0.4 (0.2-1.0) mg/dL AST 20 (15-37) U/L ALT 25 (14-59) U/L Alkaline Phosphatase 80 (46-116) U/L Total Protein 7.0 (6.4-8.2) g/dL Albumin 3.6 (3.4-5.0) g/dL Globulin 3.4 Albumin/Globulin Ratio 1.1 Amylase 54 (25-115) U/L Lipase 105 (73-393) U/L Urine HCG, Qual Salicylates < 2.8 L (2.8-20(Therapeutic)) mg/dL Urine Opiates Screen (NEGATIVE) Ur Oxycodone Screen (NEGATIVE) Urine Methadone Screen (NEGATIVE) Acetaminophen 8 L (10-30 (Therapeutic)) ug/mL Ur Barbiturates Screen (NEGATIVE) U Tricyclic Antidepress (NEGATIVE) Ur Phencyclidine Scrn (NEGATIVE) Ur Amphetamine Screen (NEGATIVE) U Methamphetamines Scrn (NEGATIVE) Urine MDMA Screen (NEGATIVE) U Benzodiazepines Scrn (NEGATIVE) Urine Cocaine Screen (NEGATIVE) U Marijuana (THC) Screen (NEGATIVE) Ethyl Alcohol < 3 (0) mg/dL SARS-CoV-2 RNA (DANYELLE) (NEGATIVE) 08/25/20 08/25/20 Range/Units 08:55 11:21 WBC (5.0-10.0) 10^3/uL RBC (4.2-5.4) 10^6/uL Hgb (12.0-16.0) g/dL Hct (37.0-47.0) % MCV (80-100) fL MCH (27.0-34.0) pg MCHC (33.0-35.0) g/dL Plt Count (150-450) 10^3/uL Neut % (Auto) (42.2-75.2) % Lymph % (Auto) (20.5-50.1) % [place] % (Auto) (2-8) % Eos % (Auto) (1.0-3.0) % Baso % (Auto) (0.0-1.0) % Sodium (136-145) mmol/L Potassium (3.5-5.1) mmol/L Chloride (98-107) mmol/L Carbon Dioxide (21-32) mmol/L Anion Gap (7-13) mEq/L BUN (7-18) mg/dL Creatinine (0.55-1.02) mg/dL Est Cr Clr Drug Dosing mL/min Estimated GFR (MDRD) BUN/Creatinine Ratio (No establ ref range) Glucose (70-99) mg/dL Lactic Acid (0.4-2.0) mmol/L Calcium (8.5-10.1) mg/dL Magnesium (1.8-2.4) mg/dL Total Bilirubin (0.2-1.0) mg/dL AST (15-37) U/L ALT (14-59) U/L Alkaline Phosphatase (46-116) U/L Total Protein (6.4-8.2) g/dL Albumin (3.4-5.0) g/dL Globulin Albumin/Globulin Ratio Amylase (25-115) U/L Lipase (73-393) U/L Urine HCG, Qual Salicylates (2.8-20(Therapeutic)) mg/dL Urine Opiates Screen (NEGATIVE) Ur Oxycodone Screen (NEGATIVE) Urine Methadone Screen (NEGATIVE) Acetaminophen 0 L (10-30 (Therapeutic)) ug/mL Ur Barbiturates Screen (NEGATIVE) U Tricyclic Antidepress (NEGATIVE) Ur Phencyclidine Scrn (NEGATIVE) Ur Amphetamine Screen (NEGATIVE) U Methamphetamines Scrn (NEGATIVE) Urine MDMA Screen (NEGATIVE) U Benzodiazepines Scrn (NEGATIVE) Urine Cocaine Screen (NEGATIVE) U Marijuana (THC) Screen (NEGATIVE) Ethyl Alcohol (0) mg/dL SARS-CoV-2 RNA (DANYELLE) Negative (NEGATIVE) Result Diagrams: 08/25/20 05:05 08/25/20 05:05 Problem List Initiated/Reviewed/Updated: Yes Orders Last 24hrs: Active Orders 24 hr Category Date Time Status Admission Diagnosis [ADT] Stat ADT 08/25/20 11:10 Ordered Admission Status [Patient Status] [ADT] Routine ADT 08/25/20 11:10 Active Antiembolic Devices [RC] PER UNIT ROUTINE Care 08/25/20 12:28 Ordered EKG 12 Lead [EKG Documentation Completion] [RC] ROUTINE Care 08/26/20 05:00 Ordered EKG Documentation Completion [RC] STAT Care 08/25/20 04:54 Active Neuro Check [RC] Q4H Care 08/25/20 12:30 Ordered Peripheral IV Care [RC] . DIRECTED Care 08/25/20 12:28 Ordered Telemetry Monitoring [Cardiac Monitoring] [RC] . Care 08/25/20 12:29 Ordered DIRECTED Up ad Maureen [RC] ASDIRECTED Care 08/25/20 12:28 Ordered Vital Signs [RC] Q4H Care 08/25/20 12:28 Ordered Consult to Case Management/Global Supply Chain Vice President [CONS] Cons 08/25/20 12:28 Ordered Routine Regular Diet [DIET] Diet 08/25/20 Lunch Ordered CBC WITH AUTO DIFF [HEME] Routine Lab 08/26/20 05:00 Ordered CMP [COMPREHENSIVE METABOLIC PN,CMP] [CHEM] Routine Lab 08/26/20 05:00 Ordered MAGNESIUM [CHEM] Routine Lab 08/26/20 05:00 Ordered Ondansetron [Zofran] Med 08/25/20 12:28 Ordered 4 mg IVPUSH Q4H PRN Sodium Chloride 0.9% [Normal Saline] 1,000 ml Med 08/25/20 12:30 Ordered IV ASDIRECTED Sodium Chloride 0.9% [Saline Flush] Med 08/25/20 12:28 Ordered 10 ml FLUSH ASDIRECTED PRN Peripheral IV Insertion Adult [OM.PC] Routine Oth 08/25/20 12:28 Ordered Seizure Precautions [OM.PC] Routine Oth 08/25/20 12:30 Ordered Sequential Compression Device [OM.PC] Per Unit Routine Oth 08/25/20 12:28 Or dered Special Observation [BH] Routine Oth 08/25/20 12:31 Ordered Resuscitation Status Routine Resus Stat 08/25/20 12:28 Ordered Medication Orders Sodium Chloride (Normal Saline) 1,000 mls @ 100 mls/hr IV ASDIRECTED LANDY Ondansetron HCl (Ondansetron 4 Mg/2 Ml Sdv) 4 mg IVPUSH Q4H PRN PRN Reason: Nausea/Vomiting Sodium Chloride (Sodium Chloride 0.9% 10 Ml Syringe) 10 ml FLUSH ASDIRECTED PRN PRN Reason: Keep Vein Open Assessment/Plan Comment:: Surgical History: [place] tooth extraction Family History: Cancer, stroke, diabetes, coronary artery disease, hypertension Social History: Tobacco: Active smoker Alcohol: Denies Caffeine: Coffee Drugs: Present use of amphetamine, methamphetamine, GAYLE. Past use of marijuana in addition to amphetaminewilfredo MD Allergies: Documented history of allergy to Paxil which patient is uncertain Code Status: Full Assessment / Plan: Medication overdose. Telemetry monitoring. Neurochecks every 4 hours. Seizure precautions. One-to-one sitter. IV normal saline 100 mL/h. Behavioral health/psychiatry evaluation Chronic pain Polysubstance abuse. Referral by case management/social work for rehabilitation upon discharge Depression Anxiety History of suicide attempt Smoker. Patient becomes regarding smoking cessation DVT prophylaxis. Bilateral CD Disposition: Anticipate discharge within 24 hours END OF DOCTOR EMAMIS HISTORY AND PHYSICAL / CONSULTATION NOTE
[2020-08-25 20:52] LABS: ANION GAP 12.3 mEq/L (7-13); CHLORIDE,CL 111 mmol/L (98-107); SODIUM,NA 147 mmol/L (136-145)
[2020-08-25] MEDS ORDERED: Sodium Chloride 0.45% 1,000 ML IV SCH (21:30)
[2020-08-26 06:44] LABS: CHLORIDE,CL 109 mmol/L (98-107); SODIUM,NA 144 mmol/L (136-145)
--- NOTE | 2020-08-26 07:05 | PCM.DCSUM1 ---
Discharge Summary - Hospital Course Free Text/Narrative:: START OF DOCTOR EMAMIS DISCHARGE SUMMARY Date of Admission: August 25, 2020 Date of Discharge: 7:03 AM on August 26, 2020 Primary Diagnosis: Medication overdosepresumed suicide attempt for which patient was evaluated by behavioral health and deemed not to be a threat to herself Secondary Diagnosis: Chronic pain Polysubstance abuse Depression Anxiety History of previous suicide attempt Smoker Hyponatremia, resolved Anemia Consultations: None Condition on Discharge: Fair Disposition: The patient will require referral to behavioral health/psychiatry upon discharge for history of depression, anxiety, and suicide attempt The patient will require referral for drug rehabilitation upon discharge Discharge Medications: Zoloft 20 mg p.o. daily Prilosec 20 mg p.o. twice daily Multivitamin 1 tab p.o. daily Wellbutrin 75 mg p.o. nightly END OF DOCTOR EMAMIS DISCHARGE SUMMARY - Discharge Data Discharge Date: 08/26/20 Discharge Disposition: Home, Self-Care 01 Condition: Fair - Referral to Home Health Primary Care Physician: PCP Unobtainable - Patient Summary/Data Consults: Consultations 08/25/20 12:28 Consult to Case Management/Fur Dry Cleaner [CONS] Routine - Patient Instructions Diet: Regular Diet as Tolerated Activity: As Tolerated - Discharge Plan Home Medications: Home Meds Multivitamin [Multi-Vitamin Daily] 1 tab PO DAILY 09/16/17 [History] Sertraline [Zoloft] 25 mg PO DAILY 09/16/17 [History] buPROPion [Wellbutrin] 75 mg PO BEDTIME 07/19/20 [History] Omeprazole 20 mg PO BID 08/25/20 [History] Forms: ED Department Discharge Referrals: PCP,Unobtain [Primary Care Provider] - - Discharge Summary/Plan Comment DC Time >30 min.: Yes - General Info Date of Service: 08/26/20 Functional Status: Reports: Pain Controlled - Review of Systems General: Reports: No Symptoms HEENT: Reports: No Symptoms Pulmonary: Reports: No Symptoms Cardiovascular: Reports: No Symptoms Gastrointestinal: Reports: No Symptoms Genitourinary: Reports: No Symptoms Musculoskeletal: Reports: No Symptoms Skin: Reports: No Symptoms Neurological: Reports: No Symptoms Psychiatric: Reports: No Symptoms - Patient Data Vitals - Most Recent: Last Vital Signs Temp 98.9 F 08/25/20 23:29 Pulse 81 08/25/20 23:29 Resp 20 06/30/21 23:29 BP 97/52 L 08/25/20 23:29 Pulse Ox 99 08/25/20 23:29 Weight - Most Recent: 119 lb 6.4 oz I&O - Last 24 hours: Intake & Output 08/25/20 08/26/20 08/26/20 22:59 06:59 14:59 Intake Total 490 Balance 490 Lab Results - Last 24 hrs: Laboratory Results - last 24 hr 08/25/20 08/25/20 08/25/20 Range/Units 08:55 11:21 20:26 WBC (5.0-10.0) 10^3/uL RBC (4.2-5.4) 10^6/uL Hgb (12.0-16.0) g/dL Hct (37.0-47.0) % MCV (80-100) fL MCH (27.0-34.0) pg MCHC (33.0-35.0) g/dL Plt Count (150-450) 10^3/uL Neut % (Auto) (42.2-75.2) % Lymph % (Auto) (20.5-50.1) % [place] % (Auto) (2-8) % Eos % (Auto) (1.0-3.0) % Baso % (Auto) (0.0-1.0) % Sodium 147 H (136-145) mmol/L Potassium 4.3 (3.5-5.1) mmol/L Chloride 111 H (98-107) mmol/L Carbon Dioxide 28 (21-32) mmol/L Anion Gap 12.3 (7-13) mEq/L BUN 12 (7-18) mg/dL Creatinine 0.91 (0.55-1.02) mg/dL Est Cr Clr Drug Dosing 79.39 mL/min Estimated GFR (MDRD) > 60 BUN/Creatinine Ratio 13.2 (No establ ref range) Glucose 100 H (70-99) mg/dL Calcium 8.2 L (8.5-10.1) mg/dL Magnesium (1.8-2.4) mg/dL Total Bilirubin 0.2 (0.2-1.0) mg/dL AST 12 L (15-37) U/L ALT 22 (14-59) U/L Alkaline Phosphatase 73 (46-116) U/L Total Protein 6.0 L (6.4-8.2) g/dL Albumin 3.0 L (3.4-5.0) g/dL Globulin 3.0 Albumin/Globulin Ratio 1.00 Acetaminophen 0 L (10-30 (Therapeutic)) ug/mL SARS-CoV-2 RNA (DANYELLE) Negative (NEGATIVE) 08/26/20 08/26/20 Range/Units 06:04 06:04 WBC 6.2 (5.0-10.0) 10^3/uL RBC 3.94 L (4.2-5.4) 10^6/uL Hgb 11.0 L D (12.0-16.0) g/dL Hct 34.9 L (37.0-47.0) % MCV 88.6 (80-100) fL MCH 27.9 (27.0-34.0) pg MCHC 31.5 L (33.0-35.0) g/dL Plt Count 276 (150-450) 10^3/uL Neut % (Auto) 42.0 L (42.2-75.2) % Lymph % (Auto) 44.0 (20.5-50.1) % [place] % (Auto) 8.7 H (2-8) % Eos % (Auto) 4.8 H (1.0-3.0) % Baso % (Auto) 0.5 (0.0-1.0) % Sodium 144 (136-145) mmol/L Potassium 4.0 (3.5-5.1) mmol/L Chloride 109 H (98-107) mmol/L Carbon Dioxide 28 (21-32) mmol/L Anion Gap 11.0 (7-13) mEq/L BUN 12 (7-18) mg/dL Creatinine 0.78 (0.55-1.02) mg/dL Est Cr Clr Drug Dosing 92.63 mL/min Estimated GFR (MDRD) > 60 BUN/Creatinine Ratio 15.4 (No establ ref range) Glucose 105 H (70-99) mg/dL Calcium 8.0 L (8.5-10.1) mg/dL Magnesium 1.8 (1.8-2.4) mg/dL Total Bilirubin 0.2 (0.2-1.0) mg/dL AST 11 L (15-37) U/L ALT 20 (14-59) U/L Alkaline Phosphatase 60 (46-116) U/L Total Protein 5.6 L (6.4-8.2) g/dL Albumin 2.8 L (3.4-5.0) g/dL Globulin 2.8 Albumin/Globulin Ratio 1.00 Acetaminophen (10-30 (Therapeutic)) ug/mL SARS-CoV-2 RNA (DANYELLE) (NEGATIVE) Med Orders - Current: Current Medications Sodium Chloride (Sodium Chloride 0.45%) 1,000 mls @ 100 mls/hr IV ASDIRECTED [facility] Last Admin: 08/25/20 23:16 Dose: 100 mls/hr Documented by: Ondansetron HCl (Ondansetron 4 Mg/2 Ml Sdv) 4 mg IVPUSH Q4H PRN PRN Reason: Nausea/Vomiting Sodium Chloride (Sodium Chloride 0.9% 10 Ml Syringe) 10 ml FLUSH ASDIRECTED PRN PRN Reason: Keep Vein Open Discontinued Medications Sodium Chloride (Normal Saline) 1,000 mls @ 100 mls/hr IV ASDIRECTED [facility] Last Infusion: 08/25/20 23:16 Dose: 0 mls/hr Documented by: - Exam General: Reports: Alert, Oriented HEENT: Reports: Pupils Equal, Pupils Reactive, EOMI, Mucous Membr. Moist/[place] Neck: Reports: Supple Lungs: Reports: Clear to Auscultation, Normal Respiratory Effort Cardiovascular: Reports: Regular Rate, Regular Rhythm GI/Abdominal Exam: Normal Bowel Sounds, Soft, Non-Tender, No Organomegaly, No Distention, No Abnormal Bruit, No Mass, Pelvis Stable Back Exam: Reports: Normal Inspection, Full Range of Motion Extremities: Normal Inspection, Normal Range of Motion, Non-Tender, No Pedal Edema, Normal Capillary Refill Skin: Reports: Warm, Dry, Intact Wound/Incisions: Reports: Healing Well Neurological: Reports: No New Focal Deficit Psy/Mental Status: Reports: Alert, Normal Affect, Normal Mood
--- NOTE | 2020-08-26 08:44 | PCM.PN ---
- General Info Date of Service: 08/26/20 Subjective Update: The patient endorses no complaints at this time. She denies fever, rigors, nausea, vomiting, cough, wheeze, abdominal pain, chest pain, dyspnea, lightheadedness, dizziness, or any other constitutional complaints. I explained to the patient her current medical condition and plan of care and I have answered all of her questions Functional Status: Reports: Pain Controlled - Review of Systems General: Reports: No Symptoms HEENT: Reports: No Symptoms Pulmonary: Reports: No Symptoms Cardiovascular: Reports: No Symptoms Gastrointestinal: Reports: No Symptoms Genitourinary: Reports: No Symptoms Musculoskeletal: Reports: No Symptoms Skin: Reports: No Symptoms Neurological: Reports: No Symptoms Psychiatric: Reports: No Symptoms - Patient Data Vitals - Most Recent: Last Vital Signs Temp 99.2 F 08/26/20 07:31 Pulse 75 08/26/20 07:31 Resp 23 H 08/26/20 07:31 BP 102/56 L 08/26/20 07:31 Pulse Ox 100 08/26/20 07:31 Weight - Most Recent: 119 lb 6.4 oz I&O - Last 24 Hours: Intake & Output 08/25/20 08/26/20 08/26/20 22:59 06:59 14:59 Intake Total 490 Balance 490 Lab Results Last 24 Hours: Laboratory Results - last 24 hr 08/25/20 08/25/20 08/25/20 Range/Units 08:55 11:21 20:26 WBC (5.0-10.0) 10^3/uL RBC (4.2-5.4) 10^6/uL Hgb (12.0-16.0) g/dL Hct (37.0-47.0) % MCV (80-100) fL MCH (27.0-34.0) pg MCHC (33.0-35.0) g/dL Plt Count (150-450) 10^3/uL Neut % (Auto) (42.2-75.2) % Lymph % (Auto) (20.5-50.1) % [place] % (Auto) (2-8) % Eos % (Auto) (1.0-3.0) % Baso % (Auto) (0.0-1.0) % Sodium 147 H (136-145) mmol/L Potassium 4.3 (3.5-5.1) mmol/L Chloride 111 H (98-107) mmol/L Carbon Dioxide 28 (21-32) mmol/L Anion Gap 12.3 (7-13) mEq/L BUN 12 (7-18) mg/dL Creatinine 0.91 (0.55-1.02) mg/dL Est Cr Clr Drug Dosing 79.39 mL/min Estimated GFR (MDRD) > 60 BUN/Creatinine Ratio 13.2 (No establ ref range) Glucose 100 H (70-99) mg/dL Calcium 8.2 L (8.5-10.1) mg/dL Magnesium (1.8-2.4) mg/dL Iron (50-175) ug/dL TIBC (250-450) ug/dL % Saturation (20.0-50.0) % Ferritin (8-252) mg/mL Total Bilirubin 0.2 (0.2-1.0) mg/dL AST 12 L (15-37) U/L ALT 22 (14-59) U/L Alkaline Phosphatase 73 (46-116) U/L Total Protein 6.0 L (6.4-8.2) g/dL Albumin 3.0 L (3.4-5.0) g/dL Globulin 3.0 Albumin/Globulin Ratio 1.00 Acetaminophen 0 L (10-30 (Therapeutic)) ug/mL SARS-CoV-2 RNA (DANYELLE) Negative (NEGATIVE) 08/26/20 08/26/20 08/26/20 Range/Units 06:04 06:04 06:04 WBC 6.2 (5.0-10.0) 10^3/uL RBC 3.94 L (4.2-5.4) 10^6/uL Hgb 11.0 L D (12.0-16.0) g/dL Hct 34.9 L (37.0-47.0) % MCV 88.6 (80-100) fL MCH 27.9 (27.0-34.0) pg MCHC 31.5 L (33.0-35.0) g/dL Plt Count 276 (150-450) 10^3/uL Neut % (Auto) 42.0 L (42.2-75.2) % Lymph % (Auto) 44.0 (20.5-50.1) % [place] % (Auto) 8.7 H (2-8) % Eos % (Auto) 4.8 H (1.0-3.0) % Baso % (Auto) 0.5 (0.0-1.0) % Sodium 144 (136-145) mmol/L Potassium 4.0 (3.5-5.1) mmol/L Chloride 109 H (98-107) mmol/L Carbon Dioxide 28 (21-32) mmol/L Anion Gap 11.0 (7-13) mEq/L BUN 12 (7-18) mg/dL Creatinine 0.78 (0.55-1.02) mg/dL Est Cr Clr Drug Dosing 92.63 mL/min Estimated GFR (MDRD) > 60 BUN/Creatinine Ratio 15.4 (No establ ref range) Glucose 105 H (70-99) mg/dL Calcium 8.0 L (8.5-10.1) mg/dL Magnesium 1.8 (1.8-2.4) mg/dL Iron 45 L (50-175) ug/dL TIBC 240 L (250-450) ug/dL % Saturation 18.8 L (20.0-50.0) % Ferritin 38 (8-252) mg/mL Total Bilirubin 0.2 (0.2-1.0) mg/dL AST 11 L (15-37) U/L ALT 20 (14-59) U/L Alkaline Phosphatase 60 (46-116) U/L Total Protein 5.6 L (6.4-8.2) g/dL Albumin 2.8 L (3.4-5.0) g/dL Globulin 2.8 Albumin/Globulin Ratio 1.00 Acetaminophen (10-30 (Therapeutic)) ug/mL SARS-CoV-2 RNA (DANYELLE) (NEGATIVE) Med Orders - Current: Current Medications Ondansetron HCl (Ondansetron 4 Mg/2 Ml Sdv) 4 mg IVPUSH Q4H PRN PRN Reason: Nausea/Vomiting Sodium Chloride (Sodium Chloride 0.9% 10 Ml Syringe) 10 ml FLUSH ASDIRECTED PRN PRN Reason: Keep Vein Open Discontinued Medications Sodium Chloride (Normal Saline) 1,000 mls @ 100 mls/hr IV ASDIRECTED LANDY Last Infusion: 08/25/20 23:16 Dose: 0 mls/hr Documented by: Sodium Chloride (Sodium Chloride 0.45%) 1,000 mls @ 100 mls/hr IV ASDIRECTED LANDY Last Admin: 08/25/20 23:16 Dose: 100 mls/hr Documented by: - Exam General: Alert, Oriented HEENT: Pupils Equal, Pupils Reactive, EOMI, Mucous Membr. Moist/[place] Neck: Supple Lungs: Clear to Auscultation, Normal Respiratory Effort Cardiovascular: Regular Rate, Regular Rhythm GI/Abdominal Exam: Normal Bowel Sounds, Soft, Non-Tender, No Organomegaly, No Distention, No Abnormal Bruit, No Mass, Pelvis Stable (Female) Exam: No: Normal External Exam, Normal Speculum Exam, Normal Bimanual Exam Back Exam: Normal Inspection, Full Range of Motion Extremities: Normal Inspection, Normal Range of Motion, Non-Tender, No Pedal Edema, Normal Capillary Refill Peripheral Pulses: 2+: Carotid (L), Carotid (R), Brachial (L), Brachial (R), Radial (L), Radial (R), Femoral (L), Femoral (R), Popliteal (L), Popliteal (R), Posterior Tibial (L), Posterior Tibial (R), Dorsalis Pedis (L), Dorsalis Pedis (R) Skin: Warm, Dry, Intact Wound/Incisions: Healing Well Neurological: No New Focal Deficit Psy/Mental Status: Alert, Normal Affect, Normal Mood - Patient Data Lab Results Last 24 hrs: Laboratory Results - last 24 hr 08/25/20 08/25/20 08/25/20 Range/Units 08:55 11:21 20:26 WBC (5.0-10.0) 10^3/uL RBC (4.2-5.4) 10^6/uL Hgb (12.0-16.0) g/dL Hct (37.0-47.0) % MCV (80-100) fL MCH (27.0-34.0) pg MCHC (33.0-35.0) g/dL Plt Count (150-450) 10^3/uL Neut % (Auto) (42.2-75.2) % Lymph % (Auto) (20.5-50.1) % [place] % (Auto) (2-8) % Eos % (Auto) (1.0-3.0) % Baso % (Auto) (0.0-1.0) % Sodium 147 H (136-145) mmol/L Potassium 4.3 (3.5-5.1) mmol/L Chloride 111 H (98-107) mmol/L Carbon Dioxide 28 (21-32) mmol/L Anion Gap 12.3 (7-13) mEq/L BUN 12 (7-18) mg/dL Creatinine 0.91 (0.55-1.02) mg/dL Est Cr Clr Drug Dosing 79.39 mL/min Estimated GFR (MDRD) > 60 BUN/Creatinine Ratio 13.2 (No establ ref range) Glucose 100 H (70-99) mg/dL Calcium 8.2 L (8.5-10.1) mg/dL Magnesium (1.8-2.4) mg/dL Iron (50-175) ug/dL TIBC (250-450) ug/dL % Saturation (20.0-50.0) % Ferritin (8-252) mg/mL Total Bilirubin 0.2 (0.2-1.0) mg/dL AST 12 L (15-37) U/L ALT 22 (14-59) U/L Alkaline Phosphatase 73 (46-116) U/L Total Protein 6.0 L (6.4-8.2) g/dL Albumin 3.0 L (3.4-5.0) g/dL Globulin 3.0 Albumin/Globulin Ratio 1.00 Acetaminophen 0 L (10-30 (Therapeutic)) ug/mL SARS-CoV-2 RNA (DANYELLE) Negative (NEGATIVE) 08/26/20 08/26/20 08/26/20 Range/Units 06:04 06:04 06:04 WBC 6.2 (5.0-10.0) 10^3/uL RBC 3.94 L (4.2-5.4) 10^6/uL Hgb 11.0 L D (12.0-16.0) g/dL Hct 34.9 L (37.0-47.0) % MCV 88.6 (80-100) fL MCH 27.9 (27.0-34.0) pg MCHC 31.5 L (33.0-35.0) g/dL Plt Count 276 (150-450) 10^3/uL Neut % (Auto) 42.0 L (42.2-75.2) % Lymph % (Auto) 44.0 (20.5-50.1) % [place] % (Auto) 8.7 H (2-8) % Eos % (Auto) 4.8 H (1.0-3.0) % Baso % (Auto) 0.5 (0.0-1.0) % Sodium 144 (136-145) mmol/L Potassium 4.0 (3.5-5.1) mmol/L Chloride 109 H (98-107) mmol/L Carbon Dioxide 28 (21-32) mmol/L Anion Gap 11.0 (7-13) mEq/L BUN 12 (7-18) mg/dL Creatinine 0.78 (0.55-1.02) mg/dL Est Cr Clr Drug Dosing 92.63 mL/min Estimated GFR (MDRD) > 60 BUN/Creatinine Ratio 15.4 (No establ ref range) Glucose 105 H (70-99) mg/dL Calcium 8.0 L (8.5-10.1) mg/dL Magnesium 1.8 (1.8-2.4) mg/dL Iron 45 L (50-175) ug/dL TIBC 240 L (250-450) ug/dL % Saturation 18.8 L (20.0-50.0) % Ferritin 38 (8-252) mg/mL Total Bilirubin 0.2 (0.2-1.0) mg/dL AST 11 L (15-37) U/L ALT 20 (14-59) U/L Alkaline Phosphatase 60 (46-116) U/L Total Protein 5.6 L (6.4-8.2) g/dL Albumin 2.8 L (3.4-5.0) g/dL Globulin 2.8 Albumin/Globulin Ratio 1.00 Acetaminophen (10-30 (Therapeutic)) ug/mL SARS-CoV-2 RNA (DANYELLE) (NEGATIVE) Result Diagrams: 08/26/20 06:04 08/26/20 06:04 Sepsis Event Note - Evaluation Sepsis Screening Result: No Definite Risk - Focused Exam Vital Signs: Vital Signs Temp Pulse Resp BP BP Pulse Ox 08/26/20 07:31 99.2 F 75 23 H 102/56 L 100 08/25/20 23:29 98.9 F 81 20 97/52 L 99 - Problem List Review Problem List Initiated/Reviewed/Updated: Yes - My Orders Last 24 Hours: My Active Orders 08/25/20 Lunch Regular Diet [DIET] 08/25/20 12:28 Antiembolic Devices [RC] PER UNIT ROUTINE Peripheral IV Care [RC] Up ad Maureen [RC] ASDIRECTED Vital Signs [RC] 00,04,08,12,16,20 Consult to Case Management/Adaptive Physical Education Teacher [CONS] Routine Ondansetron [Zofran] 4 mg IVPUSH Q4H PRN Sodium Chloride 0.9% [Saline Flush] 10 ml FLUSH ASDIRECTED PRN Peripheral IV Insertion Adult [OM.PC] Routine Sequential Compression Device [OM.PC] Per Unit Routine Resuscitation Status Routine 08/26/20 05:00 EKG 12 Lead [EKG Documentation Completion] [RC] ROUTINE 08/26/20 06:58 OCCULT BLOOD DIAGNOSTIC [OP] Routine 08/26/20 07:02 Ready for Discharge [RC] PER UNIT ROUTINE 08/26/20 09:00 Ascorbic Acid [Vitamin C] 500 mg PO DAILY 08/26/20 18:00 Ferrous Sulfate 325 mg PO BIDMEALS - Plan Plan:: Surgical History: [place] tooth extraction Family History: Cancer, stroke, diabetes, coronary artery disease, hypertension Social History: Tobacco: Active smoker Alcohol: Denies Caffeine: Coffee Drugs: Present use of amphetamine, methamphetamine, GAYLE. Past use of marijuana in addition to amphetaminewilfredo, Allergies: Documented history of allergy to Paxil which patient is uncertain Code Status: Full Assessment / Plan: Medication overdose. Behavioral health/psychiatry evaluation Iron deficiency anemia. Will monitor hemoglobin level intermittently. Ferrous sulfate 3.5 mg p.o. twice daily plus vitamin C 500 mg p.o. daily Hypernatremia. Resolved Chronic pain Polysubstance abuse. Referral by case management/social work for rehabilitation upon discharge Depression Anxiety History of suicide attempt Smoker. Patient becomes regarding smoking cessation DVT prophylaxis. Bilateral CD Disposition: The patient is medically stable for discharge. The current plan, after discussion with case management/social work, is to have the patient transferred for inpatient psychiatric treatment. END OF DOCTOR EMAMIS HISTORY AND PHYSICAL / CONSULTATION NOTE
[2020-08-26] MEDS ORDERED: Ascorbic Acid 500 MG Tab PO SCH (09:00)
[2020-08-26] MEDS ORDERED: Ferrous Sulfate 325 MG Tab PO SCH (10:00)
[2020-08-26 13:05] VITALS: BP 109/58; PULSE 76
== END 2020-08-26 13:57 | disposition home or self-care (01) ==
LOC: DL.ED 04:20 → DL.MS 11:10
PROVIDERS: ADMIT Internal Medicine; ATTEND Internal Medicine
DX: T50.902A Poisoning by unspecified drugs, medicaments and biological substances, intentional self-harm, initial encounter (principal); T14.91XA Suicide attempt, initial encounter; F17.210 Nicotine dependence, cigarettes, uncomplicated; G89.29 Other chronic pain; F19.10 Other psychoactive substance abuse, uncomplicated; D50.9 Iron deficiency anemia, unspecified; E87.0 Hyperosmolality and hypernatremia; K21.9 Gastro-esophageal reflux disease without esophagitis; Z20.822 Contact with and (suspected) exposure to COVID-19; Z88.8 Allergy status to other drugs, medicaments and biological substances; Z79.899 Other long term (current) drug therapy
CPT/HCPCS: 36415; 80053; 80143; 80179; 80305-QW; 80307; 81025; 82150; 82728; 83540; 83550; 83605; 83690; 83735; 85025; 93005; 99285-25; A9270-GY; G0378; J7030; U0002

== ENCOUNTER 2021-02-18 20:11 | Observation (INO) | payer MEDICAID ==
[2021-02-18 21:17] LABS: ANION GAP 13.6 mEq/L (7-13); CHLORIDE,CL 108 mmol/L (98-107); SODIUM,NA 143 mmol/L (136-145)
[2021-02-18 21:20] LABS: ACETAMINOPHEN 0 ug/mL (10-30 (Therapeutic))
[2021-02-18] MEDS ORDERED: Sodium Chloride 0.9% 1,000 ML IV ONE (21:57)
[2021-02-18 22:29] LABS: AMPHETAMINES,URINE POSITIVE (NEGATIVE); BARBITURATES,URINE NEGATIVE (NEGATIVE); BENZODIAZEPINE,URINE NEGATIVE (NEGATIVE); MDMA (ECSTASY), URINE NEGATIVE (NEGATIVE); METHADONE,URINE NEGATIVE (NEGATIVE); METHAMPHETAMINES,URINE POSITIVE (NEGATIVE); OPIATES,URINE NEGATIVE (NEGATIVE); OXYCODONE,URINE NEGATIVE (NEGATIVE); PHENCYCLIDINE,URINE NEGATIVE (NEGATIVE); TCA,URINE NEGATIVE (NEGATIVE)
[2021-02-18] MEDS ORDERED: cefTRIAXone 1 GM in Sodium Chloride 0.9% 50 ML IV ONE (23:18)
--- NOTE | 2021-02-19 00:24 | EDM.PDOC ---
ED HPI GENERAL MEDICAL PROBLEM - General Chief Complaint: General Stated Complaint: POSSILBE OVERDOSE Time Seen by Provider: 02/18/21 20:30 Source of Information: Reports: Patient, Significant Other History Limitations: Reports: Altered Mental Status, Uncooperative - History of Present Illness INITIAL COMMENTS - FREE TEXT/NARRATIVE: ED with boyfriend, Patient reports taking 7-8 tablets of wellbutrin earlier today, Patient reports around 11 Boyfriend reported arund 1, emesis approximately 5pm. Patient denies suicide attempt. Reports she and boyfriend had argument and on impulse took pills, Now c/o feeling shakey and having hallucinations. Chart review, patient has had prior hx of intentional overdose with Wellbutrin. Denied use of alcohol or other drugs. - Related Data Allergies Allergy/AdvReac Type Severity Reaction Status Date / Time paroxetine [From Paxil] Allergy Rash Verified 08/25/20 12:16 Home Meds: Home Meds Ibuprofen 400 mg PO Q8HR PRN 02/19/21 [History] buPROPion [Wellbutrin SR] 1 tab PO BEDTIME 02/19/21 [History] Past Medical History - Past Health History Medical/Surgical History: Denies Medical/Surgical History HEENT History: Reports: None Cardiovascular History: Reports: None Respiratory History: Reports: None Gastrointestinal History: Reports: Cholelithiasis Genitourinary History: Reports: None [employer]IV[employer] History: Reports: Musculoskeletal History: Reports: Back Pain, Chronic Neurological History: Reports: None Psychiatric History: Reports: Addiction, Anxiety Endocrine/Metabolic History: Reports: None Hematologic History: Reports: None Immunologic History: Reports: None Oncologic (Cancer) History: Reports: None Dermatologic History: Reports: None - Infectious Disease History Infectious Disease History: Reports: Chicken Pox - Past Surgical History Head Surgeries/Procedures: Reports: None Social & Family History - Family History Family Medical History: No Pertinent Family History - Tobacco Use Tobacco Use Status *Q: Current Some Day Tobacco User Years of Tobacco use: 15 Packs/Tins Daily: 0.1 - Caffeine Use Caffeine Use: Reports: Coffee, Energy Drinks, Soda - Recreational Drug Use Recreational Drug Use: No ED ROS GENERAL - Review of Systems Review Of Systems: Comprehensive ROS is negative, except as noted in HPI. ED EXAM, GENERAL - Physical Exam Exam: See Below Exam Limited By: No Limitations General Appearance: Alert, Anxious Eye Exam: Bilateral Eye: EOMI, PERRL Ears: Normal External Exam, Hearing Grossly Normal Nose: Normal Inspection Throat/Mouth: Normal Inspection Head: Atraumatic, Normocephalic Neck: Normal Inspection, Full Range of Motion Respiratory/Chest: No Respiratory Distress, Lungs Clear, Normal Breath Sounds Cardiovascular: Normal Peripheral Pulses GI/Abdominal: Normal Bowel Sounds, Soft Back Exam: Normal Inspection Extremities: Normal Inspection Psychiatric: Anxious, Other (answers some quesstions clearly vague with other , Reports not being able to remember age of children, though may be realistic for patient as she does not have custody of her children. Extremely anxious without significant other at bedside. ) #1 Interpretation EKG Date: 02/18/21 Time: 20:36 Rhythm: NSR Rate (Beats/Min): 90 Verdi: Normal P-Wave: Present QRS: Normal ST-T: Normal Course - Vital Signs Last Recorded V/S: Last Vital Signs Temp 99.1 F 02/18/21 23:00 Pulse 82 02/19/21 00:15 Resp 18 02/19/21 00:15 BP 118/74 02/18/21 23:00 Pulse Ox 96 02/19/21 00:15 - Orders/Labs/Meds Orders: Active Orders 24 hr Category Date Time Status Admission Diagnosis [ADT] Stat ADT 02/19/21 00:16 Ordered Admission Status [Patient Status] [ADT] Routine ADT 02/19/21 00:16 Active CULTURE URINE [RM] Stat Lab 02/18/21 22:19 Received Labs: Laboratory Tests 02/18/21 02/18/21 02/18/21 Range/Units 20:50 20:50 20:50 WBC 9.6 (5.0-10.0) 10^3/uL RBC 4.54 (4.2-5.4) 10^6/uL Hgb 12.7 D (12.0-16.0) g/dL Hct 39.6 (37.0-47.0) % MCV 87.2 (80-100) fL MCH 28.0 (27.0-34.0) pg MCHC 32.1 L (33.0-35.0) g/dL Plt Count 297 (150-450) 10^3/uL Neut % (Auto) 87.1 H (42.2-75.2) % Lymph % (Auto) 8.5 L (20.5-50.1) % [place] % (Auto) 3.6 (2-8) % Eos % (Auto) 0.6 L (1.0-3.0) % Baso % (Auto) 0.2 (0.0-1.0) % Sodium 143 (136-145) mmol/L Potassium 4.6 (3.5-5.1) mmol/L Chloride 108 H (98-107) mmol/L Carbon Dioxide 26 (21-32) mmol/L Anion Gap 13.6 H (7-13) mEq/L BUN 11 (7-18) mg/dL Creatinine 0.75 (0.55-1.02) mg/dL Est Cr Clr Drug Dosing TNP Estimated GFR (MDRD) > 60 BUN/Creatinine Ratio 14.7 (No establ ref range) Glucose 107 H (70-99) mg/dL Calcium 8.3 L (8.5-10.1) mg/dL Total Bilirubin 0.5 (0.2-1.0) mg/dL AST 162 H (15-37) U/L ALT 218 H (14-59) U/L Alkaline Phosphatase 92 (46-116) U/L Troponin I High Sens (<=51) pg/mL Total Protein 6.9 (6.4-8.2) g/dL Albumin 3.5 (3.4-5.0) g/dL Globulin 3.4 Albumin/Globulin Ratio 1.0 HCG, Qual Negative Urine Color (YELLOW) Urine Appearance (CLEAR) Urine pH (5.0-9.0) Ur Specific [place] (1.005-1.030) Urine Protein (NEGATIVE) Urine Glucose (UA) (NEGATIVE) Urine Ketones (NEGATIVE) Urine Occult Blood (NEGATIVE) Urine Nitrite (NEGATIVE) Urine Bilirubin (NEGATIVE) Urine Urobilinogen (0.2-1.0) mg/dL Ur Leukocyte Esterase (NEGATIVE) Urine RBC (0-5) /HPF Urine WBC (0-5/HPF) /HPF Ur Epithelial Cells (NOT SEEN) /HPF Urine Bacteria (0-FEW/HPF) /HPF Urine Other Salicylates < 2.8 L (2.8-20(Therapeutic)) mg/dL Urine Opiates Screen (NEGATIVE) Ur Oxycodone Screen (NEGATIVE) Urine Methadone Screen (NEGATIVE) Acetaminophen 0 L (10-30 (Therapeutic)) ug/mL Ur Barbiturates Screen (NEGATIVE) U Tricyclic Antidepress (NEGATIVE) Ur Phencyclidine Scrn (NEGATIVE) Ur Amphetamine Screen (NEGATIVE) U Methamphetamines Scrn (NEGATIVE) Urine MDMA Screen (NEGATIVE) U Benzodiazepines Scrn (NEGATIVE) Urine Cocaine Screen (NEGATIVE) U Marijuana (THC) Screen (NEGATIVE) Ethyl Alcohol (0) mg/dL SARS CoV-2 RNA Rapid DANYELLE (NEGATIVE) 02/18/21 02/18/21 02/18/21 Range/Units 20:50 20:50 22:19 WBC (5.0-10.0) 10^3/uL RBC (4.2-5.4) 10^6/uL Hgb (12.0-16.0) g/dL Hct (37.0-47.0) % MCV (80-100) fL MCH (27.0-34.0) pg MCHC (33.0-35.0) g/dL Plt Count (150-450) 10^3/uL Neut % (Auto) (42.2-75.2) % Lymph % (Auto) (20.5-50.1) % [place] % (Auto) (2-8) % Eos % (Auto) (1.0-3.0) % Baso % (Auto) (0.0-1.0) % Sodium (136-145) mmol/L Potassium (3.5-5.1) mmol/L Chloride (98-107) mmol/L Carbon Dioxide (21-32) mmol/L Anion Gap (7-13) mEq/L BUN (7-18) mg/dL Creatinine (0.55-1.02) mg/dL Est Cr Clr Drug Dosing Estimated GFR (MDRD) BUN/Creatinine Ratio (No establ ref range) Glucose (70-99) mg/dL Calcium (8.5-10.1) mg/dL Total Bilirubin (0.2-1.0) mg/dL AST (15-37) U/L ALT (14-59) U/L Alkaline Phosphatase (46-116) U/L Troponin I High Sens 5 (<=51) pg/mL Total Protein (6.4-8.2) g/dL Albumin (3.4-5.0) g/dL Globulin Albumin/Globulin Ratio HCG, Qual Urine Color Yellow (YELLOW) Urine Appearance Slightly cloudy (CLEAR) Urine pH 7.5 (5.0-9.0) Ur Specific [place] 1.025 (1.005-1.030) Urine Protein Negative (NEGATIVE) Urine Glucose (UA) Negative (NEGATIVE) Urine Ketones Negative (NEGATIVE) Urine Occult Blood Trace-intact H (NEGATIVE) Urine Nitrite Negative (NEGATIVE) Urine Bilirubin Negative (NEGATIVE) Urine Urobilinogen 2.0 H (0.2-1.0) mg/dL Ur Leukocyte Esterase Moderate H (NEGATIVE) Urine RBC Not seen (0-5) /HPF Urine WBC 40-50 H (0-5/HPF) /HPF Ur Epithelial Cells Many H (NOT SEEN) /HPF Urine Bacteria Many H (0-FEW/HPF) /HPF Urine Other See note Salicylates (2.8-20(Therapeutic)) mg/dL Urine Opiates Screen (NEGATIVE) Ur Oxycodone Screen (NEGATIVE) Urine Methadone Screen (NEGATIVE) Acetaminophen (10-30 (Therapeutic)) ug/mL Ur Barbiturates Screen (NEGATIVE) U Tricyclic Antidepress (NEGATIVE) Ur Phencyclidine Scrn (NEGATIVE) Ur Amphetamine Screen (NEGATIVE) U Methamphetamines Scrn (NEGATIVE) Urine MDMA Screen (NEGATIVE) U Benzodiazepines Scrn (NEGATIVE) Urine Cocaine Screen (NEGATIVE) U Marijuana (THC) Screen (NEGATIVE) Ethyl Alcohol < 3 (0) mg/dL SARS CoV-2 RNA Rapid DANYELLE (NEGATIVE) 02/18/21 02/19/21 Range/Units 22:19 00:15 WBC (5.0-10.0) 10^3/uL RBC (4.2-5.4) 10^6/uL Hgb (12.0-16.0) g/dL Hct (37.0-47.0) % MCV (80-100) fL MCH (27.0-34.0) pg MCHC (33.0-35.0) g/dL Plt Count (150-450) 10^3/uL Neut % (Auto) (42.2-75.2) % Lymph % (Auto) (20.5-50.1) % [place] % (Auto) (2-8) % Eos % (Auto) (1.0-3.0) % Baso % (Auto) (0.0-1.0) % Sodium (136-145) mmol/L Potassium (3.5-5.1) mmol/L Chloride (98-107) mmol/L Carbon Dioxide (21-32) mmol/L Anion Gap (7-13) mEq/L BUN (7-18) mg/dL Creatinine (0.55-1.02) mg/dL Est Cr Clr Drug Dosing Estimated GFR (MDRD) BUN/Creatinine Ratio (No establ ref range) Glucose (70-99) mg/dL Calcium (8.5-10.1) mg/dL Total Bilirubin (0.2-1.0) mg/dL AST (15-37) U/L ALT (14-59) U/L Alkaline Phosphatase (46-116) U/L Troponin I High Sens (<=51) pg/mL Total Protein (6.4-8.2) g/dL Albumin (3.4-5.0) g/dL Globulin Albumin/Globulin Ratio HCG, Qual Urine Color (YELLOW) Urine Appearance (CLEAR) Urine pH (5.0-9.0) Ur Specific [place] (1.005-1.030) Urine Protein (NEGATIVE) Urine Glucose (UA) (NEGATIVE) Urine Ketones (NEGATIVE) Urine Occult Blood (NEGATIVE) Urine Nitrite (NEGATIVE) Urine Bilirubin (NEGATIVE) Urine Urobilinogen (0.2-1.0) mg/dL Ur Leukocyte Esterase (NEGATIVE) Urine RBC (0-5) /HPF Urine WBC (0-5/HPF) /HPF Ur Epithelial Cells (NOT SEEN) /HPF Urine Bacteria (0-FEW/HPF) /HPF Urine Other Salicylates (2.8-20(Therapeutic)) mg/dL Urine Opiates Screen Negative (NEGATIVE) Ur Oxycodone Screen Negative (NEGATIVE) Urine Methadone Screen Negative (NEGATIVE) Acetaminophen (10-30 (Therapeutic)) ug/mL Ur Barbiturates Screen Negative (NEGATIVE) U Tricyclic Antidepress Negative (NEGATIVE) Ur Phencyclidine Scrn Negative (NEGATIVE) Ur Amphetamine Screen Positive H (NEGATIVE) U Methamphetamines Scrn Positive H (NEGATIVE) Urine MDMA Screen Negative (NEGATIVE) U Benzodiazepines Scrn Negative (NEGATIVE) Urine Cocaine Screen Negative (NEGATIVE) U Marijuana (THC) Screen Negative (NEGATIVE) Ethyl Alcohol (0) mg/dL SARS CoV-2 RNA Rapid DANYELLE Negative (NEGATIVE) Meds: Medications Discontinued Medications Generic Name Dose Route Start Last Admin Trade Name Freq PRN Reason Stop Dose Admin Sodium Chloride 1,000 mls @ 999 mls/hr 02/18/21 21:57 02/18/21 22:25 Normal Saline IV 02/18/21 22:57 999 mls/hr .BOLUS ONE Administration Ceftriaxone Sodium 1 gm/ 50 mls @ 100 mls/hr 02/18/21 23:18 02/18/21 23:28 Sodium Chloride IV 02/18/21 23:47 100 mls/hr ONETIME ONE Administration - Re-Assessments/Exams Free Text/Narrative Re-Assessment/Exam: 02/19/21 00:32 CRisis Counselor from [facility] here to asses patient. Patient is at ris but earlier event not a suicidal gesture. Counselor will return tomorrow am . Departure - Departure Time of Disposition: 00:34 Disposition: Refer to Observation Condition: Fair Clinical Impression: Positive urine drug screen, UTI, Urinary tract infectious disease Overdose Qualifiers: Encounter type: initial encounter Injury intent: intentional self-harm Qualified Code(s): T50.902A - Poisoning by unspecified drugs, medicaments and biological substances, intentional self-harm, initial encounter - Discharge Information *PRESCRIPTION DRUG MONITORING PROGRAM REVIEWED*: No *COPY OF PRESCRIPTION DRUG MONITORING REPORT IN PATIENT STIVEN: No Sepsis Event Note (ED) - Evaluation Sepsis Screening Result: No Definite Risk - Focused Exam Vital Signs: Vital Signs Temp Pulse Resp BP Pulse Ox 02/19/21 00:15 82 18 96 02/18/21 23:00 99.1 F 88 14 118/74 96 02/18/21 22:00 92 18 96 02/18/21 21:00 94 117/71 99 02/18/21 20:20 97.6 F 110 H 18 128/71 98 - My Orders Last 24 Hours: My Active Orders 02/18/21 22:19 CULTURE URINE [RM] Stat 02/19/21 00:16 Admission Diagnosis [ADT] Stat Admission Status [Patient Status] [ADT] Routine - Assessment/Plan Last 24 Hours: My Active Orders 02/18/21 22:19 CULTURE URINE [RM] Stat 02/19/21 00:16 Admission Diagnosis [ADT] Stat Admission Status [Patient Status] [ADT] Routine
[2021-02-19] MEDS ORDERED: Ondansetron 4 MG/2 ML SDV IVPUSH PRN (01:40)
[2021-02-19] MEDS: Lactated Ringers 1,000 ML IV SCH ×2 (02:00→09:54)
[2021-02-19] MEDS ORDERED: LORazepam 2 MG/ML SDV IVPUSH ONE (02:00)
[2021-02-19] MEDS: Metoclopramide 10 MG/2 ML SDV IVPUSH SCH ×2 (02:17→09:27)
[2021-02-19] MEDS: Pantoprazole 40 MG Vial IVPUSH SCH ×2 (02:19→09:27)
--- NOTE | 2021-02-19 03:13 | HP ---
The patient is a [id number] female presented to emergency room because she had an argument with her and she took 7 to 8 tablets of Wellbutrin earlier today between 11 and 1 p.m. the patient vomited around 5 p.m. History is as per my discussion with ER attending and review of the chart. The patient is unable to give history or she is too anxious to discuss about what happened. She denies suicide attempt. As per ER note, she reported that she and her boyfriend had argument and impulsively took pills. She denies hallucinations and the patient is a very poor historian. As per ER note, she reported hallucinations. Chart reviewed. The patient has history of intention overdose with Wellbutrin. She denies use of alcohol or other drugs. She states she lost her children. She has 5 children and she lost due to drug abuse and currently her children are with their grandmother. ALLERGIES: The patient is allergic to paroxetine. She has rash with paroxetine. HOME MEDICATIONS: She is on ibuprofen 40 mg q.8 hours p.r.n. and bupropion 150 mg p.o. daily. PAST MEDICAL HISTORY: History of suicidal attempt, cholelithiasis, back pain chronic, addiction, anxiety, and chickenpox. PAST SURGICAL HISTORY: None. FAMILY HISTORY: Her father and her grandmother had diabetes. Tobacco use, she smoked tobacco for the past 15 years in a small amount. She drinks coffee and soda. PHYSICAL EXAMINATION: The patient is alert and awake. Head is atraumatic and normocephalic. VITAL SIGNS: At admission, temperature 99.1, pulse 82, respiratory rate 18, blood pressure 118/74, and pulse oximetry 96. NECK: Supple. No thyromegaly. No lymphadenopathy. HEART: S1 and S2. Regular rhythm and rate. LUNGS: Clear to auscultation bilateral. ABDOMEN: Soft. Tenderness to palpation in the epigastrium. Positive bowel sounds. EXTREMITIES: No edema. EKG done 02/18/2021 shows normal sinus rate with a rate of 90 beats per minute. Matthews is normal. P-wave is present. QRS normal. ST-T Andrzej. laboratory data atadmission; WBC 9.6, hemoglobin 12.7, hematocrit 39.6, platelet count 297, neutrophils 87.1, and lymphocytes 8.5. Sodium 143, potassium 4.6, chloride 108, CO2 of 26, anion gap 13.6, BUN 11, creatinine 0.75, estimated GFR more than 60. Glucose 107, calcium 8.3, total bilirubin 0.5, AST 162, ALT 218, alkaline phosphatase 92, total protein 6.9, albumin 2.5, and globulin 2.4. HCG negative. Salicylates less than 2.8. Urinalysis, urine color is yellow and urine pH is 7.5. Urine specific gravity is 1.025, urine protein negative, urine glucose negative, ketones negative, urine occult blood trace intact, urine nitrite negative, bilirubin negative, and urobilinogen 2, it is high. Leukocyte esterase, it is moderate. Urine rbc not seen, wbc 40 to 50, epithelial cells many, and bacteria many. Urine toxicology, salicylate less than 2.8 with positive for amphetamine and methamphetamine and coronavirus negative. A [id number] female presented to emergency room after she impulsively took 7 to 8 tablets of Wellbutrin 150 mg extended release, which she was taking for smoking cessation. The patient with prior suicide attempt with Wellbutrin and currently she is intoxicated with methamphetamine and amphetamines. Urinalysis is positive for urinary infection. The patient had an episode of vomiting currently, and she denies hallucinations, which she previously reported in the emergency room. Laboratory data show elevated LFTs. ASSESSMENT: 1. Suicide attempt with Wellbutrin. We will put the patient in telemetry and we will monitor the patient for a total of 24 hours since ingestion and we will monitor the patient for seizures. In case of seizures, the patient will be given Ativan 2 mg IV push. Also, the patient will be on one-to-one watch and she will need Psych evaluation. 2. Urinary tract infection. The patient was given in the emergency room ceftriaxone 1 g IV. We will follow up urine culture. Also, we will order blood cultures. We will order also Chlamydia and GC in the urine. For elevated LFTs, we will order hepatitis panel and we will monitor liver function tests. 3. Epigastric pain. We will give the patient Protonix 40 mg IV b.i.d. and we will monitor the patient clinically for nausea and vomiting. The patient will be given Zofran IV push q.4 hours and also Reglan 10 mg IV push q.6 hours p.r.n. for nausea and vomiting. 4. For DVT prophylaxis, we will give the patient Lovenox 40 mg subcu q.24 hours and for nausea and vomiting, the patient will be placed n.p.o. and she will be given hydration with Ringer's lactate at 125 mL/hours. MODL /[id number]
[2021-02-19 06:51] LABS: ANION GAP 14.5 mEq/L (7-13); CHLORIDE,CL 108 mmol/L (98-107); SODIUM,NA 144 mmol/L (136-145)
[2021-02-19] MEDS ORDERED: Enoxaparin 40 MG/0.4 ML Syringe SUBCUT SCH (09:00)
[2021-02-19] MEDS ORDERED: Sodium Chloride 0.9% 10 ML Syringe FLUSH SCH (09:00)
[2021-02-19 12:49] VITALS: BP 106/61; PULSE 82
[2021-02-19] MEDS ORDERED: Ciprofloxacin 500 MG Tab ONE (13:55)
[2021-02-19] MEDS ORDERED: cefTRIAXone 1 GM in Sodium Chloride 0.9% 50 ML IV SCH (21:00)
--- NOTE | 2021-02-21 02:45 | DISCH ---
DISCHARGE DIAGNOSES: 1. Suicide attempt with Wellbutrin. 2. Urinary tract infection. 3. Epigastric pain. 4. Elevated liver function tests. 5. Drug abuse. 6. Depression. 7. Anxiety. 8. Possible hallucination. HOSPITAL COURSE: The patient 26 years old female who presented through the emergency room because she had an argument with her and she took 7 to 8 tablets of Wellbutrin earlier between 11:00 p.m. and 1:00 p.m. The patient was very anxious at admission, and history was difficult to obtain from the patient. She denied suicide attempt. She reported hallucination to the ER physician, but she denies hallucinations when was interviewed by the hospitalist. She has history of intentional overdose with Wellbutrin. She denies alcohol use. She stated she lost her children due to drug abuse. Her children currently are with her grandmother. During the hospital stay, the patient was monitored for seizures in telemetry. She was admitted to observation. The patient did not have any seizures. She was found also to have elevated LFTs at admission and hepatitis panel was sent out. The patient says that she knows that she has hepatitis virus because she used IV drugs. At admission, she was found to have urinary tract infection and she was treated with a ceftriaxone 1 dose. She was discharged home with ciprofloxacin 500 mg p.o. b.i.d. for another 2 days. The patient did not have any urinary symptoms. Physical exam showed that she has epigastric pain and she was treated with Protonix 40 mg IV b.i.d. She had an episode of vomiting and she was given Zofran and Reglan, and her vomiting stopped. She was also treated with IV fluids and Ringer's lactate at 125 mL/h. PHYSICAL EXAMINATION: General: The patient was alert, awake. HEENT: Head is atraumatic and normocephalic. Pupils are reactive to light. Neck: Supple. No thyromegaly. No lymphadenopathy. Lungs: Clear to auscultation bilaterally. Heart: S1 and S2. Regular rhythm and rate. No murmurs. Abdomen: Soft and nontender. Mild tenderness in the epigastrium. Extremities: No edema. Neurologic: She is alert and awake. No focal neurologic deficits. Vital Signs: Today, her temperature was 99.2, pulse 88, blood pressure 116/65, respiratory rate 20, and oxygen pulse oximetry 97. LABORATORY DATA: WBC 4.9, hemoglobin 11.6, and hematocrit 36.5. Sodium 144, potassium 3.5, chloride 108, carbon dioxide 25, anion gap 14.5, BUN 5, creatinine 0.54, glucose 82, calcium 8, AST 251, and ALT 298. Troponin was 5 at admission. Protein 6 and albumin 3. HCG negative. Urinalysis was slightly cloudy, moderate leukocyte esterase, and wbc's 40 to 50. PLAN: For epigastric pain, the patient was told to continue treatment for a month with Pepcid 20 mg daily [id number] and to avoid NSAID, and to not drink alcohol. [facility] /[id number]
[2021-02-23 12:48] LABS: C.TRACHOMATIS BY TMA Negative (Negative); N.GONORRHOEAE BY TMA Negative (Negative)
== END 2021-02-19 14:05 | disposition home or self-care (01) ==
LOC: DL.ED 20:11 → DL.MS 02-19 00:29
PROVIDERS: ADMIT Internal Medicine; ATTEND Internal Medicine
DX: T43.292A Poisoning by other antidepressants, intentional self-harm, initial encounter (principal); R44.3 Hallucinations, unspecified; F41.9 Anxiety disorder, unspecified; F17.200 Nicotine dependence, unspecified, uncomplicated; N39.0 Urinary tract infection, site not specified; R10.13 Epigastric pain; F32.A Depression, unspecified; R79.89 Other specified abnormal findings of blood chemistry; Z20.822 Contact with and (suspected) exposure to COVID-19; Z88.8 Allergy status to other drugs, medicaments and biological substances
CPT/HCPCS: 36415; 80053; 80074; 80143; 80179; 80305-QW; 80307; 81001; 84484; 84703; 85025; 87086; 87491; 87591; 93005; 96372; 96375; 96376; C9113; G0378; J0696; J1650; J2765; J7030; J7120; U0002

== ENCOUNTER 2021-12-15 02:46 | Inpatient (IN) | payer MEDICAID ==
[2021-12-15] MEDS: Lactated Ringers 1,000 ML IV SCH ×2 (03:30→04:15)
[2021-12-15] MEDS ORDERED: Tranexamic Acid 1,000 MG in Sodium Chloride 0.9% 100 ML IV PRN (04:37)
[2021-12-15] MEDS ORDERED: Carboprost Tromethamine 250 MCG/1 ML Amp IM PRN (04:37)
[2021-12-15] MEDS ORDERED: Methylergonovine 0.2 MG/1 ML Amp IM PRN (04:37)
[2021-12-15] MEDS ORDERED: Lactated Ringers 1,000 ML IV ONE (04:37)
[2021-12-15] MEDS ORDERED: Sodium Chloride 0.9% 10 ML Syringe FLUSH PRN (04:37)
[2021-12-15] MEDS ORDERED: Lidocaine 1% 30 ML SDV INJECT PRN (04:37)
[2021-12-15] MEDS ORDERED: Misoprostol 400 MCG (4 X 100 MCG TAB) RECTAL PRN (04:37)
[2021-12-15] MEDS ORDERED: Ondansetron 4 MG/2 ML SDV IVPUSH PRN (04:37)
[2021-12-15] MEDS ORDERED: Oxytocin/Normal Saline 30 UNIT/500 ML BAG IV SCH (04:45)
[2021-12-15 04:46] LABS: AMPHETAMINES,URINE NEGATIVE (NEGATIVE); BARBITURATES,URINE NEGATIVE (NEGATIVE); BENZODIAZEPINE,URINE NEGATIVE (NEGATIVE); MDMA (ECSTASY), URINE NEGATIVE (NEGATIVE); METHADONE,URINE NEGATIVE (NEGATIVE); METHAMPHETAMINES,URINE NEGATIVE (NEGATIVE); OPIATES,URINE NEGATIVE (NEGATIVE); OXYCODONE,URINE NEGATIVE (NEGATIVE); PHENCYCLIDINE,URINE NEGATIVE (NEGATIVE); TCA,URINE NEGATIVE (NEGATIVE)
[2021-12-15] MEDS ORDERED: Diphtheria,Pertussis(Acell),Tetanus Vaccine 0.5 ML Syringe IM ONE (05:46)
[2021-12-15] MEDS ORDERED: Benzocaine/Menthol 20%-0.5% Spray 78 GM Cannister TOP PRN (05:46)
[2021-12-15] MEDS ORDERED: Simethicone 80 MG Tab.Chew PO PRN (05:46)
[2021-12-15] MEDS ORDERED: Oxytocin 10 Units/1 ML SDV IM PRN (05:46)
[2021-12-15] MEDS ORDERED: Zolpidem 5 MG Tab PO PRN (05:46)
[2021-12-15] MEDS ORDERED: Ibuprofen 800 MG Tab PO PRN (05:46)
[2021-12-15] MEDS: Prenatal Multivitamin with Calcium/Folic Acid/Iron Tab PO SCH (08:05)
[2021-12-15] MEDS: Ferrous Sulfate 325 MG Tab PO SCH (08:05)
[2021-12-15] MEDS: Acetaminophen 325 MG Tab PO PRN (19:19)
[2021-12-15] MEDS: Docusate Sodium 100 MG Cap PO PRN (19:24)
[2021-12-16 10:46] LABS: C.TRACHOMATIS BY TMA Negative (Negative); N.GONORRHOEAE BY TMA Negative (Negative)
[2021-12-16] MEDS: Ferrous Sulfate 325 MG Tab PO SCH (11:23)
[2021-12-16] MEDS: Prenatal Multivitamin with Calcium/Folic Acid/Iron Tab PO SCH (11:24)
[2021-12-16] MEDS: Acetaminophen 325 MG Tab PO PRN ×2 (11:34→20:51)
[2021-12-17 08:32] VITALS: BP 113/47; PULSE 66
[2021-12-17] MEDS: Docusate Sodium 100 MG Cap PO PRN (08:59)
[2021-12-17] MEDS: Acetaminophen 325 MG Tab PO PRN (08:59)
[2021-12-17] MEDS: Prenatal Multivitamin with Calcium/Folic Acid/Iron Tab PO SCH (08:59)
[2021-12-17] MEDS: Ferrous Sulfate 325 MG Tab PO SCH (08:59)
== END 2021-12-17 11:45 | disposition home or self-care (01) | DRG 806 ==
LOC: DL.OBCHECK 02:46 → UNDOADMOB 04:04 → DL.OB 04:04 → OBSVTOIN 05:26 → INTOOBSV 05:26 → DL.MS 09:43 → OBSVTOIN 09:43
PROVIDERS: ADMIT Family Medicine; ATTEND Family Medicine
PROC: 10E0XZZ Delivery of Products of Conception, External Approach (ICD-10-PCS; principal; 2021-12-15)
PROC: 10907ZC Drainage of Amniotic Fluid, Therapeutic from Products of Conception, Via Natural or Artificial Opening (ICD-10-PCS; 2021-12-15)
DX: O99.02 Anemia complicating childbirth (principal); O99.324 Drug use complicating childbirth; Z37.0 Single live birth; Z3A.37 37 weeks gestation of pregnancy; D64.9 Anemia, unspecified; F15.90 Other stimulant use, unspecified, uncomplicated; O77.0 Labor and delivery complicated by meconium in amniotic fluid; Z20.822 Contact with and (suspected) exposure to COVID-19
CPT/HCPCS: 36415; 59409; 80305-QW; 80307; 81001; 81003; 85025; 85027; 86592; 86762; 86803; 86850; 86900; 86901; 87081; 87086; 87340; 87389; 87491; 87591; 90471; 90715; A9270-GY; J2590; J7120; U0002